=== PATIENT | female | born 1975 | race Caucasian/White ===

== ENCOUNTER 2019-02-05 21:23 | Emergency (ER) | payer BC, SELFPAY ==
[2019-02-05 21:23] VITALS: BP 148/77; PULSE 68; RESP 16; TEMP 36.6; O2SAT 100; BMI 23.3
--- NOTE | 2019-02-05 22:18 | ED.VIS.FEGU ---
History of Present Illness Chief Complaint: Vag Bleeding Informant: Patient Pain: Pelvic Pain Onset: Weeks - 1 Timing: Intermittent Quality: Cramping Current Severity: Mild Maximum Severity: Mild Issue: Vaginal bleeding Onset: Days - 8 Context: Gradual Onset Timing: Continuous Current Severity: Heavy - about 4-5 supers tampons over this past day Maximum Severity: Heavy Associated Symptoms: - - malaise. Negative for: Dysuria, Frequency, Urgency, Hematuria Narrative: Patient had menstrual cycle start as expected a days ago, they usually last 5 or 6 days. She is now on day 8 and over the past day or 2, her cycle/bleeding has been excessively heavy and unusual for her. She has had large clots as a result. She feels malaised but she has had no lightheadedness, near-syncope, shortness of breath, or palpitations. She states she has not had this happen before. She is having cramping which she typically has, as well as bloating which is unusual for her. She denies any nausea or vomiting. - Past Medical History (1) Depression Status: Chronic (2) Anxiety Status: Chronic Past Medical History - Allergies and Home Meds Allergies/Adverse Reactions: Allergies No Known Allergies Allergy (Verified 02/05/19 21:25) Primary Care Physician: Care Physician,No Primary [Primary Care Provider] - Doctors: Dr. Judge Smoking Status: Former smoker Drugs: None Review of Systems General: Reports: Malaise. Denies: Chills, Fever, Sweats Eyes: Denies: Visual changes - bilaterally, Diplopia ENT: Denies: Rhinorrhea, Sore throat Cardiovascular: Denies: Chest pain, Palpitations Respiratory: Denies: Dyspnea, Cough, Dyspnea on exertion Gastrointestinal: Reports: Abdominal pain. Denies: Nausea, Vomiting, Diarrhea, Melena, Hematochezia Genitourinary: Reports: - - Vaginal bleeding. See HPI.. Denies: Dysuria, Hematuria, Frequency Musculoskeletal: Denies: Back pain, Extremity Pain Skin: Denies: Rash, Wounds Neurological: Denies: Headache, Weakness, Numbness Physical Exam Vital Signs/Narrative: Vital Signs Temp Pulse Resp BP Pulse Ox 02/05/19 21:23 97.9 F 68 16 148/77 H 100 Inital Vital Signs reviewed: Yes General: Well nourished, Well developed, - - No acute distress Head: Normocephalic, Atraumatic Eyes: Perrl, EOMI ENT: Moist mucous membranes, No rhinorrhea Neck: Supple, Nontender Cardiovascular: Regular rate, Regular rhythm, No murmurs Respiratory: No distress, CTA bilaterally, Chest nontender Abdomen: Soft, Normal bowel sounds, Tender - Mild throughout pelvis. Negative for: Nondistended - Mild diffuse distention, Guarding, Rebound tenderness : Speculum exam: Normal external genitalia, No vaginal lesions, No vaginal discharge, No blood in vault, Small clots - Within cervical os, which was removed. No significant vaginal bleeding afterwards. Bimanual exam: No cervical motion tenderness, Os closed Back: Nontender, Normal Inspection. Negative for: CVA tenderness Extremities: Nontender, No edema Skin: Normal color, No rash, No Trauma Neurological: Alert, Oriented x3, Cranial nerves II-XII grossly intact, Normal Strength, Normal Sensation Psychological: Normal affect, Normal Mood Diagnostic/Tx/Re-eval Laboratory Results 02/05/19 02/05/19 02/05/19 22:40 22:40 22:40 WBC 7.8 RBC 3.64 L Hgb 7.2 L Hct 25.5 L MCV 70.1 L MCH 19.8 L MCHC 28.2 L RDW Std Deviation 46.6 H RDW Coeff of Matias 18.7 H Plt Count 432 MPV 9.3 Immature Gran % (Auto) 0.300 Neut % (Auto) 54.6 Lymph % (Auto) 33.4 Pima % (Auto) 6.8 Eos % (Auto) 3.6 Baso % (Auto) 1.3 H Absolute Neuts (auto) 4.3 Absolute Lymphs (auto) 2.60 Nucleated RBC % 0 Sodium 141 Potassium 3.4 L Chloride 108 H Carbon Dioxide 27.0 Anion Gap 6 BUN 21 H Creatinine 0.93 Estim Creat Clear Calc 68.74 Est GFR (MDRD) Af Amer 85 Est GFR (MDRD) Non-Af 70 BUN/Creatinine Ratio 22.6 H Glucose 82 Calcium 8.7 Serum , Qual NEGATIVE - Medical Decision/Diagnostic Studies Labs show a hemoglobin of 7.2, certainly explaining why the patient does not feel well with all of the menorrhagia she has been having. On pelvic exam, she does not have any clinically significant vaginal bleeding. Her orthostatics were mildly positive with regards to heart rate, she did not feel near syncopal when she stood up. I discussed with Dr. Cazares, covering for her moshgiach; he feels given her stability she can be discharged home and follow-up in 2 days in the office. He recommends Aygestin, 10 mg every 2 hours until bleeding stops, and then a 4-5-day taper which they can take care of in the office, recommended giving her 42 pills. I discussed this with the patient and she is amenable to that, but I recommend getting a unit of packed red blood cells prior to discharge in case she continues to bleed. We discussed risks and benefits, she agrees/consents to the transfusion. The plan is to give her a unit here along with 500 cc of IV fluids given her orthostasis, and to discharge her home later. Of note, ultrasound not available during the hours the patient presented, and although may be helpful, not indicated emergently. I am not suspicious of ovarian torsion. She has noted no severe pain. Critical care time (excluding procedures): 30-74 minutes - 35 minutes, including time spent discussing with patient, family, product management consultant, performing direct patient care at the bedside ED Disposition - Plan for ED Patient: Disposition: Home or Assisted Living Diagnosis: Acute blood loss anemia, Menorrhagia Instructions: Dysfunctional Uterine Bleeding Referrals: Gifty Judge MD [STAFF PHYSICIAN] - As soon as possible (Call Thursday morning for appointment on Thursday, Thursday at latest)
[2019-02-05] MEDS: Ketorolac 30 MG/ML Syringe IV (22:36)
[2019-02-05 22:41] VITALS: BP 113/74; BP 125/82; BP 128/76; PULSE 55; PULSE 74; PULSE 78
[2019-02-05 22:46] LABS: Absolute Neutrophil Count 4.3 X10^3/uL (2.0-7.7); Basophil% 1.3 % (0-1); Eosinophil# 0.28 X10^3/uL; Eosinophils% 3.6 % (0-5); Hematocrit 25.5 % (37-47); Hemoglobin 7.2 g/dL (12.0-15.0); Lymphocyte % 33.4 % (19-41); Mean Corp Hgb Conc 28.2 g/dL (32-36); Mean Corpuscular Hgb 19.8 pg (27.0-32.0); Mean Corpuscular Volume 70.1 fL (81-99); Mean Platelet Vol. 9.3 fl (6.2-12.0); Monocyte# 0.53 X10^3/uL; Monocyte% 6.8 % (0-10); NRBC Flagged by Analyzer 0 % (0-5); Neutrophil # 4.26 X10^3/uL (2.7-7.7); Neutrophil % 54.6 % (47-70); Platelet Count 432 K/mm3 (150-450); RBC Distribution Width CV 18.7 % (11.6-14.6); RBC Distribution Width SD 46.6 fl (35.1-43.9); Red Blood Count 3.64 M/mm3 (4.2-5.4); White Blood Count 7.8 K/mm3 (4.4-11.0)
[2019-02-05 22:47] VITALS: BP 125/82; PULSE 77; RESP 16; O2SAT 97
[2019-02-05 23:00] LABS: Anion Gap 6 (5-15); BUN 21 mg/dL (7-18); BUN/Creat Ratio 22.6 RATIO (10-20); Calcium,Total 8.7 mg/dL (8.5-10.1); Chloride 108 mmol/L (98-107); Creatinine, Serum 0.93 mg/dL (0.55-1.02); EST Glomerular Filtration Rate 70 mL/min (>60); Est Glom Filt Rate - Afr Amer 85 mL/min (>60); Estimated Creatinine Clearance 68.74 ml/min; Glucose 82 mg/dL (74-106); Potassium 3.4 mmol/L (3.5-5.1); Sodium Level 141 mmol/L (136-145)
[2019-02-05 23:07] LABS: Internal QC Validated? YES +Cl - CLEAR BKGD; Pregnancy, Serum, hCG Quali. NEGATIVE Negative
[2019-02-06] VITALS (7 sets, daily range): BP systolic 107–127; BP diastolic 75–88; PULSE 51–75; RESP 14–16; TEMP -13.3–36.9; O2SAT 99–100
--- NOTE | 2019-02-06 04:05 | ED.RN ---
temp put in the TAR in error, unable to edit, temp 98.1
== END 2019-02-06 04:07 | disposition home or self-care (01) ==
PROVIDERS: Emergency Provider Emergency Medicine
DX: D62 Acute posthemorrhagic anemia (principal); N92.0 Excessive and frequent menstruation with regular cycle; F32.9 Major depressive disorder, single episode, unspecified; F41.9 Anxiety disorder, unspecified; Z79.899 Other long term (current) drug therapy; Z87.891 Personal history of nicotine dependence
CPT/HCPCS: 80048; 84703; 85025; 86850; 86900; 86901; 86920; 86922; 96361; 96374; 99282; J7030; J7040; P9016; A4216

== ENCOUNTER 2019-07-28 05:54 | Day surgery (SDC) | payer BC, SELFPAY ==
--- NOTE | 2019-07-27 13:31 | EKG12_ITS ---
Test Reason : PRE OP Blood Pressure : / mmHG Vent. Rate : 061 BPM Atrial Rate : 061 BPM P-R Int : 156 ms QRS Dur : 076 ms QT Int : 400 ms P-R-T Axes : 021 037 026 degrees QTc Int : 402 ms Normal sinus rhythm Cannot rule out Anterior infarct , age undetermined Abnormal ECG Confirmed by NORBERTO MEDRANO ([id number]), editor newspaper LELE CAMPBELL ([id number]) on 07/29/2019 1:15:46 PM Referred By: Joel Cazares Confirmed By:NORBERTO MEDRANO
[2019-07-27 14:10] LABS: Hemoglobin 12.6 g/dL (12.0-15.0); Mean Corp Hgb Conc 32.3 g/dL (32-36); Mean Corpuscular Hgb 30.5 pg (27.0-32.0); Mean Corpuscular Volume 94.4 fL (81-99); Mean Platelet Vol. 9.6 fl (6.2-12.0); Platelet Count 377 K/mm3 (150-450); Red Blood Count 4.13 M/mm3 (4.2-5.4)
[2019-07-27 14:26] LABS: Partial Thromboplast Time 31.4 Seconds (24.1-36.2); Prothrombin Time (Protime)PT. 13.1 SECONDS (11.7-14.9)
[2019-07-27 14:35] LABS: Anion Gap 3 (5-15); BUN 13 mg/dL (7-18); BUN/Creat Ratio 14.9 RATIO (10-20); Chloride 109 mmol/L (98-107); Creatinine, Serum 0.88 mg/dL (0.55-1.02); EST Glomerular Filtration Rate 75 mL/min (>60); Est Glom Filt Rate - Afr Amer 91 mL/min (>60); Glucose 86 mg/dL (74-106); Potassium 3.7 mmol/L (3.5-5.1); Sodium Level 141 mmol/L (136-145)
--- NOTE | 2019-07-27 21:49 | PCM.HP.BLA ---
History and Physical Date of Admission: 07/28/19 Surgical History and Physical Christina Templeton, a 44 year old female 2 0 1 0 2, presents for RAVH/BS on July 28, 2019 at 7:30. -- Submucous Fibroids, Menorrhagia, Blood Loss Anemia -- Increasingly heavier menses with last menses so heavy she passed out at work. States heavy and prolonged period. Concerned about how heavy the bleeding has been. Prior tubal ligation, prior C/S deliveries. Even presented to ED with CC of very heavy period. Received 2 unit of pRBCs and sent home with Aygestin Taper. U/S:UTERUS: 8.9 x 5.8 x 6.6cm. posterior submucous fibroid seen measures 3.5 x 3.7 x 3.5cm. ENDOMETRIAL ECHO: 6.1mm. RIGHT OVARY: 2.3 x 1.9 x 2.3cm. LEFT OVARY: 1.5 x 1.9 x 2.3cm. Fibroid has grown from the last us done on 01/28/17. Fibroid measured 2.4cm. Hgb was 7.2 and she was transfused. Heavy bleeding with clots causing extreme fatigue. Heavy Bleeding with Clots(ER on 07/11) which began started 07/01/19. Christina claims it started suddenly and has been present continues through today. It occurs all the time. It is located in the vagina. Christina characterizes the quality Heavy bleeding, Clots, Fatigue. Severity is moderate and not improving and very concerned; Additional comments are: Seen at [facility] on 07/11/19.; Additional comments are: hgb about 10; has been as low as 7 and has been transfused with 2 units PRBC several months ago. MEDICATIONS HISTORY: Patient is also takin. Adderall 30 mg tablet, daily 2. Klonopin 0.5 mg tablet, prn 3. Wellbutrin XL 300 mg 24 hr tablet, extended release, daily 4. Ambien 5 mg tablet, One pill by mouth once a day at hs prn ALLERGIES: NKA Infections - Chicken pox and [place] Illnesses - depression/anxiety, back pain, post-traumatic stress disorder Accidents - Lifting accident age 24 which resulted in herniated disc L-4 Hospitalizations - see surgery and Childbirth Review of Systems: GENERAL - Denies fever, or chills SKIN - Denies skin changes EYES - Denies visual changes EARS - Denies difficulty hearing NOSE - Denies nasal congestion or bleeding MOUTH - Denies sore throat or difficulty swallowing NECK - Denies pain or swelling RESPIRATORY - Denies shortness of breath or wheezing CARDIOVASCULAR - Denies palpitations or chest pain GASTROINTESTINAL - Denies nausea, vomiting, diarrhea, constipation GENITOURINARY - Denies dysuria, frequency of urination, incontinence of urine MUSCULOSKELETAL - Denies joint or muscle pain NEUROLOGICAL - Denies localized numbness or weakness PSYCHIATRIC - Denies depression or anxiety ENDOCRINE - Denies heat or cold intolerance, weight loss or gain HEMATO-IMMUNOLOGIC - Denies excesive bleeding with cuts SOCIAL HISTORY: Alcohol Use - socially Smoking - used to smoke but quit Diet - no red meat Lifestyle - Exercise - swimming and walking Seat Belt Use - always Employer - [employer] [address] 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 and high cholesterol. Mother: Mitral Valve Prolapse. Father: Pre-diabetes--- diet controlled. Sister: celiac disease. Paternal Grandmother: angina, glaucoma, parkinson's dx. MENSTRUAL HISTORY: LMP Known?- DefiniteAmount/Duration - prolonged, Regularity - bleeds between periods, Frequency - monthly days, LMP - 07/02/19, Age Onset Menarche - 13 PAST PREGNANCIES: Total Pregnancies - 3; Full Term Pregnancies - 2; Premature - 0; Abortions, Induced - 0; Abortions, Spontaneous - 1; Ectopics - 0; Multiple Births - 0; Living Children - 2 SURGICAL HISTORY: 1. Appendectomy 2. 04/17/2009 Back Surgery ; - Herniated Disc L-4 3. 01/17/2010 R/, BTO ; Gifty Judge M.D. - Prior 4. 09/24/2005 ; Mayra Cornejo M.D. - Breech PHYSICAL EXAM BP- 136/86 Sitting, Right arm, regular cuff Weight- 137.04496 lbs Height- 64.5 inch BMI:23.20 CONSTITUTIONAL - NAD, well nourished, and well developed HEENT - Normocephalic, PERRLA, EOMI NECK - no nuchal rigidity BREAST - deferred EXTREMITIES - No edema or calf tenderness NEUROLOGICAL - Cranial nerves II-XII grossly intact PSYCHIATRIC - A and O to time, place, person, mood and affect External Genital Vagina - non-tender without lesions Urethra/Urethral Meatus - non-tender Bladder - non-tender Vagina - no palpable lesions Cervix - without cervical motion tenderness and has normal size and features without evident lesions Uterus - normal size, mobile, no tenderness, no masses palpable and no nodularity noted Adnexa - clear without masses or tenderness ASSESSMENT/PLAN: 1. Excessive Bleeding In The Premenopausal Period, Iron Deficiency Anemia Secondary To Blood Loss (chronic), Menorrhagia and Submucous Leiomyoma Of Uterus Reviewed pelvic ultrasound and pt's recent history , emergency dept visit and transfusion for blood loss anemia. Submucous fibroid noted and continued growth since prior sono. Advised may consider hysterectomy, and pt now desires that we proceed RAVH/BS. Discussed RBAS and all questions answered.
[2019-07-28] VITALS (14 sets, daily range): BP systolic 84–119; BP diastolic 57–77; PULSE 60–90; RESP 16–18; TEMP 36.4–37.3; O2SAT 98–100; BMI 24.0
[2019-07-28] MEDS: Lactated Ringers 1,000 ML 100 ML IV ×2 (06:40→06:46)
[2019-07-28 07:05] LABS: Internal QC Validated? YES +Cl - CLEAR BKGD; Pregnancy, Urine Negative Negative
--- NOTE | 2019-07-28 07:30 | HYST_PTH ---
PATIENT: WILY JEWELL LOC: [facility] U#:[id number] AGE/SX: 44/F ROOM: RE07/28/[address]: Dr. Joel Cazares MD : [id number] BED: DIS: 07/29/2019 SPEC #: [id number] RECD: 07/28/19 13:24 STATUS: ANITRA REDelano #: [id number] JEANNIE: 07/28/19 07:[address]: Joel Cazares DEPT: SURGICAL PATHOLOGY RECD BY: Edgar Kowalski ENTERED: 07/28/19 13:57 SP TYPE: HYSTERECT OTHR DR: No Primary Care Phys Tissues: Uterus, NOS Procedures: Surgery Specimen Level V HEADER OPERATION: Lap robotic hysterectomy, bilateral salpingectomy PRE-OP DIAGNOSIS: Excessive bleeding the premenopausal period; iron deficiency anemia; menorrhagia and submucous leiomyoma of uterus TISSUE SUBMITTED: Uterus, bilateral fallopian tubes MICROSCOPIC DIAGNOSIS Uterus, hysterectomy: Cervix - nabothian cysts, squamous metaplasia and mild chronic inflammation. Endometrium - secretory endometrium. Myometrium - leiomyomas and adenomyosis. Right fallopian tube - benign paratubal cyst. Left fallopian tube - benign paratubal cyst. AM:collins 07/29/19 MICROSCOPIC DESCRIPTION Slides are reviewed. GROSS DESCRIPTION Received in fixative is one container labeled with the patient's name and designated uterus. The specimen consists of a uterus with attached cervix, detached right fallopian tube and attached left fallopian tube. The uterus with cervix measures 10.5 x 7 x 7 cm and weighs 215 gm. The ectocervix is unremarkable. The cervical os is round in contour. The endocervical canal measures 4 cm in length and is grossly unremarkable. The triangular endometrial cavity measures 4.6 x 4 cm. The velvety, light boggs endometrium measures up to 0.2 cm in thickness. The myometrium measures 2.8 cm in greatest thickness and is distorted by multiple spherical rubbery nodules ranging in size from 1 to 5 cm. The nodules are submucosal and intramural in location. On cut sections, the nodules reveal a whorled appearance without areas of cyst formation or necrosis. The right and left fallopian tubes are similar in appearance. Distinct fimbriated end is not identified in the left fallopian tube. A Filshie type clip is present in the left fallopian tube and is intact. Lumber Estimator sections are submitted in ten cassettes as follows: 1 - anterior cervix, 2 - posterior cervix, 3 & 4 - anterior uterine wall, 5 & 6 - posterior uterine wall, 7??largest myometrial mass, 8 - smaller myometrial masses, 9 - right fallopian tube, 10 - left fallopian tube. / AM:collins 07/28/19 TC:1 CPT: 00110
--- NOTE | 2019-07-28 07:38 | PCM.OPRPT ---
Report of Operation Date of Procedure: 07/28/19 Pre-Operative Diagnosis: Submucous Fibroids, Menorrhagia, Blood Loss Anemia Post-Operative Diagnosis: Submucous Fibroids, Menorrhagia, Blood Loss Anemia Surgery/Procedure Performed:: Robotic Assisted Vaginal Hysterectomy and Bilateral Salpingectomy Description of Surgical Findings:: 14 cm fibroid uterus with normal-appearing fallopian tubes and ovaries. Evidence of prior sections with adhesions of the uterus to the anterior abdominal wall and bladder. Evidence of prior tubal ligation with Filshie clips. vehicle return associate: Mata Montilla vehicle return associate: Nia Solo Type of Anesthesia:: General - Endotracheal Anesthesiologist: Marcella Sparks Specimen's removed: Uterus and bilateral fallopian tubes Drains: Sy to straight drain Estimated Blood Loss (mL): Minimal Fluids Replaced: Crystalloid Description of Procedure: Surgeon: Joel Cazares MD, FACOG Indication: This is a 44 year old patient who has been having problems with extremely heavy menses and submucous fibroids. Conservative measures have not been helpful. The patient has been counseled regarding the risks, benefits and alternatives of this procedure including the possibility of bleeding, infection, and injury to surrounding structures such as bowel bladder and all questions were answered. She understands that if BSO is needed that she will need to be on HRT for an indefinite period of time. Procedure: Pt taken to the operating room where, after induction of general anesthesia, the patient was prepped and draped in the usual sterile fashion and placed on a non-slip Huggy-u-vac device. Trendelenburg test was satisfactory. Bladder was drained of urine with a Sy catheter which was left in place. Anterior cervix grasped and cervix was dilated to about 3-4 mm. Uterus sounded to 11 cms. 0-Vicryl suture was placed at the 3:00 and 9:00 position of the cervix. A small Advincula Employee Welfare Manager Uterine Manipulator was then placed in the uterus and attention was turned to the laparoscopic portion of the procedure. Ropivocaine 0.5% was injected approximately 3 cm superior to the umbilicus and an 8 mm robotic camera port was introduced directly with intraperitoneal placement confirmed with CO2 insufflation. 8 mm robotic side ports were introduced under direct visualization approximately 10 cm lateral and 2 cm inferior to the umbilical port. A 5 mm left upper quadrant port was introduced and airseal insufflation with CO2 was started. The above findings were noted. Robot was docked without difficulty and attention turned to the robotic portion of the procedure. Approximately 30 cc of Ropivicaine was used. Bilateral mesosalpinx were ligated with 35 miranda bipolar coagulation to the level of the round ligament. The posterior aspect of the cervix was identified and then opened for about 1 cm using 25 watt monopolar cautery identifying the uterine manipulating device which had been placed vaginally. Bladder flap was opened and divided to the level of the round ligaments using monopolar cautery ligating the adhesions with sharp, blunt, and cautery dissection. Progressive bites were then ligated on each side of the cervix with 35 miranda bipolar cautery to the uterine arteries. The anterior vaginal mucosa was entered and cervix circumscribed with monopolar cautery. Uterus and attached tubes were removed through the vagina. Vaginal cuff was closed first with 0-Vicryl Greg stitches placed at each angle followed by closure of the mid-cuff with 0-Monocryl V-lock suture in two layers. Pelvis was copiously irrigated with saline and the right and left ureter were noted to peristalse. Robot was undocked and trocars were removed with as much gas as possible. Incisions were closed with 4-0 Monocryl subcuticular sutures and incisions covered with steri-strips. The patient tolerated the procedure well and was taken to the recovery room in satisfactory condition. Sponge, instruments and needle counts were all correct. There were no apparent complications of the surgery. Cefotan 2 gms IV was given prior to the procedure. Estimated Blood Loss: Minimal Specimen to Pathology: Uterus and bilateral tubes Grafts/Implants Used: None - Complications None - Admit VTE Documentation VTE Present on Admission: Yes VTE Mechan Device Prophylaxis: SCD's VTE Pharm Prophylaxis ordered?: Yes
--- NOTE | 2019-07-28 07:40 | PCM.DC.VHY ---
Discharge Diet: No Restrictions Discharge Activity: Return to Normal Activity, May Not Drive - while taking narcotic pain medications., May Shower, May Take a Tub Bath May resume sexual activity in: 6-8 weeks Call your doctor if your incision/area has: Continuous Slow Oozing, Sudden Increased Bleeding, Increased Pain/ Swelling, Increased Redness, Foul Smelling Discharge Call your doctor if you observe: Fever of 101 or Higher, Inability to urinate, Inability to have a bowel movement, Using more than one pad per hour Allergies/Adverse Reactions: Allergies No Known Allergies Allergy (Verified 07/28/19 06:17) Medications to take at Discharge Bupropion HCl [Wellbutrin Xl] 300 mg PO DAILY 02/05/19 Clonazepam 0.5 mg PO DAILY PRN 02/05/19 Dextroamphetamine/Amphetamine [Dextroamp-Amphet ER 30 mg Cap] 50 mg PO DAILY 02/05/19 Multivitamin with Minerals [Multiple Vitamin] 1 ea PO DAILY 07/21/19 Docusate Sodium [Colace] 100 mg PO BID PRN PRN #60 cap 07/28/19 Oxycodone [Oxyir] 5 mg PO Q6H PRN PRN 7 Days #14 tablet 07/28/19 The following prescriptions were given: Docusate Sodium [Colace] 100 mg PO BID PRN PRN #60 cap PRN Reason: Constipation Transmission Status: Pending to [facility] Oxycodone [Oxyir] 5 mg PO Q6H PRN PRN 7 Days #14 tablet PRN Reason: Pain Score 6-10/10 Transmission Status: Sent to [facility] Primary Care Physician: Care Physician,No Primary [Primary Care Provider] - Test Results: Test results from this visit will be discussed in further detail at your follow-up appointment, if applicable. Please Follow Up With: Joel Cazares MD When: 2 to 3 weeks
[2019-07-28] MEDS: Ropivacaine 0.5% 30 ML Vial (10:00)
[2019-07-28] MEDS: Dextrose 5%-Lactated Ringers 1,000 ML 150 ML IV ×2 (13:25→21:01)
[2019-07-28] MEDS: HYDROmorphone 1 MG/ML Syringe 0.5 MG IV (13:29)
[2019-07-28] MEDS: Ketorolac 30 MG/ML Syringe IV ×2 (16:22→21:02)
[2019-07-28] MEDS: Ondansetron 4 MG/2 ML Vial IV (16:22)
[2019-07-28] MEDS: Enoxaparin 30 MG/0.3 ML Syringe SC (17:27)
[2019-07-29 03:15] VITALS: BP 103/62; PULSE 90; RESP 18; TEMP 37.1; O2SAT 99
[2019-07-29] MEDS: Ketorolac 30 MG/ML Syringe IV ×2 (03:17→09:14)
[2019-07-29 05:45] LABS: Hematocrit 29.6 % (37-47); Hemoglobin 9.5 g/dL (12.0-15.0); Mean Corp Hgb Conc 32.1 g/dL (32-36); Mean Corpuscular Hgb 30.2 pg (27.0-32.0); Mean Platelet Vol. 9.8 fl (6.2-12.0); Platelet Count 255 K/mm3 (150-450); RBC Distribution Width CV 13.2 % (11.6-14.6); RBC Distribution Width SD 45.2 fl (35.1-43.9); Red Blood Count 3.15 M/mm3 (4.2-5.4); White Blood Count 11.1 K/mm3 (4.4-11.0)
[2019-07-29 06:14] LABS: Creatinine, Serum 0.76 mg/dL (0.55-1.02); EST Glomerular Filtration Rate 89 mL/min (>60); Est Glom Filt Rate - Afr Amer 107 mL/min (>60); Estimated Creatinine Clearance 83.27 ml/min
[2019-07-29 07:47] VITALS: BP 114/78; PULSE 77; RESP 16; TEMP 36.8; O2SAT 99
[2019-07-29 07:53] VITALS: O2SAT 98
[2019-07-29] MEDS: oxyCODONE 5 MG Tablet PO (08:51)
[2019-07-29] MEDS: buPROPion (XL) 300 MG TABLET.XL PO (08:51)
--- NOTE | 2019-07-29 09:05 | PCM.PN.OB ---
Objective: Patient without complaints. Tolerating diet. Some spasms into the vagina likely from the Sy catheter. Minimal vaginal bleeding. - Physical Exam Vitals/I&O's: Vital Signs Temp Pulse Resp BP Pulse Ox 98.3 F 77 16 114/78 98 07/29/19 07:47 07/29/19 07:47 07/29/19 07:47 07/29/19 07:47 07/29/19 07:53 Oxygen Delivery Method Room Air Weight: 139 lb 15.896 oz Body Mass Index (BMI) 24.0 Intake and Output for Last 24 Hours 07/27/19 07/28/19 07/29/19 23:59 23:59 23:59 Intake Total 2475 / 2475 1000 / 1000 Output Total 600 / 600 900 / 900 Balance 1875 / 1875 100 / 100 Comment: Wounds CDI. Good urine output. Hemoglobin and creatinine okay. Laboratory Results 07/29/19 05:14: WBC 11.1 H, RBC 3.15 L, Hgb 9.5 L, Hct 29.6 L, MCV 94.0, MCH 30.2, MCHC 32.1, RDW Std Deviation 45.2 H, RDW Coeff of Matias 13.2, Plt Count 255, MPV 9.8 07/29/19 05:14: Creatinine 0.76, Estim Creat Clear Calc 83.27, Est GFR (MDRD) Af Amer 107, Est GFR (MDRD) Non-Af 89 Current Medications Acetaminophen (Tylenol) 1,000 mg PO Q8H PRN PRN PRN Reason: Pain Score 1-3/10 or Fever Bupropion HCl (Wellbutrin Xl) 300 mg PO DAILY [facility] Last Admin: 07/29/19 08:51 Dose: 300 mg Documented by: Clonazepam (Klonopin) 0.5 mg PO DAILY PRN PRN PRN Reason: ANXIETY Docusate Sodium (Colace) 100 mg PO BID PRN PRN PRN Reason: CONSTIPATION Hydromorphone HCl (Dilaudid Inj) 0.5 mg IV Q3H PRN PRN PRN Reason: Pain Score 4-10/10 Last Admin: 07/28/19 13:29 Dose: 0.5 mg Documented by: Ketorolac Tromethamine (Toradol (Bkc)) 30 mg IV Q6H [facility] Stop: 08/02/19 16:01 Last Admin: 07/29/19 03:17 Dose: 30 mg Documented by: Non-Formulary Medication (Dextroamphetamine/Amphetamine [Dextroamp-Amphet Er 30 Mg Cap]) 50 mg PO DAILY [facility] Ondansetron HCl (Zofran) 4 mg IV Q4H PRN PRN PRN Reason: NAUSEA Last Admin: 07/28/19 16:22 Dose: 4 mg Documented by: Oxycodone HCl (Oxyir) 5 mg PO Q4H PRN PRN PRN Reason: Pain Score 4-10/10 Last Admin: 07/29/19 08:51 Dose: 5 mg Documented by: Simethicone (Mylicon) 80 mg PO [facility] Last Admin: 07/29/19 08:00 Dose: 80 mg Documented by: Sodium Chloride () 10 - 40 ml IV UD PRN PRN Reason: SALINE FLUSH Medical Necessity - Tobacco Use Smoking Status: Former smoker Tobacco Use: Non-smoker Assessment/Plan Doing well postoperative day #1 status post robotic assisted vaginal hysterectomy and bilateral salpingectomy. Will release to home later today when tolerating diet well and after Sy is out and she is voiding on her own. Routine home-going instructions given.
[2019-07-29] MEDS: 0.9% Saline Lock 10 ML Syringe IV (09:14)
[2019-07-29 11:14] VITALS: BP 106/63; PULSE 75; RESP 16; TEMP 37.1; O2SAT 97
== END 2019-07-29 11:25 | disposition home or self-care (01) ==
LOC: SDC 05:54 → AC 05:55 → MS3 14:08
PROVIDERS: Referring Provider Obstetrics & Gynecology; Visit Provider Obstetrics & Gynecology
PROC: 0UT90ZZ Resection of Uterus, Open Approach (ICD-10-PCS; CPT 58571; principal; 2019-07-28 07:10)
DX: D25.0 Submucous leiomyoma of uterus (principal); N87.9 Dysplasia of cervix uteri, unspecified; N88.8 Other specified noninflammatory disorders of cervix uteri; N83.8 Other noninflammatory disorders of ovary, fallopian tube and broad ligament; D50.0 Iron deficiency anemia secondary to blood loss (chronic); N92.0 Excessive and frequent menstruation with regular cycle; F41.9 Anxiety disorder, unspecified; F32.9 Major depressive disorder, single episode, unspecified; F43.10 Post-traumatic stress disorder, unspecified; Z79.899 Other long term (current) drug therapy; Z87.891 Personal history of nicotine dependence
CPT/HCPCS: 00840; 58571; S2900; 36415; 80048; 81025; 82565; 85027; 85610; 85730; 86850; 86900; 86901; 88307; 93005; 99251; J7120; A4216; G0463; J2405

== ENCOUNTER 2019-08-09 09:24 | Emergency (ER) | payer BC, SELFPAY ==
[2019-07-28 12:25] VITALS: BMI 24.0
[2019-08-09 09:27] VITALS: BP 123/77; PULSE 87; RESP 16; TEMP 36.7; O2SAT 100; BMI 23.1
[2019-08-09 10:03] LABS: Absolute Lymphocyte Count 1.57 X10^3/uL (0.83-4.51); Absolute Neutrophil Count 8.2 X10^3/uL (2.0-7.7); Basophil# 0.12 X10^3/uL; Basophil% 1.1 % (0-1); Eosinophil# 0.39 X10^3/uL; Eosinophils% 3.6 % (0-5); Hematocrit 36.4 % (37-47); Hemoglobin 11.7 g/dL (12.0-15.0); Lymphocyte # 1.57 X10^3/ul (4.0); Lymphocyte % 14.6 % (19-41); Mean Corp Hgb Conc 32.1 g/dL (32-36); Mean Corpuscular Hgb 29.9 pg (27.0-32.0); Mean Corpuscular Volume 93.1 fL (81-99); Mean Platelet Vol. 9.3 fl (6.2-12.0); Monocyte# 0.44 X10^3/uL; Monocyte% 4.1 % (0-10); NRBC Flagged by Analyzer 0 % (0-5); Neutrophil # 8.18 X10^3/uL (2.7-7.7); Neutrophil % 76.1 % (47-70); Platelet Count 457 K/mm3 (150-450); RBC Distribution Width CV 11.9 % (11.6-14.6); RBC Distribution Width SD 40.3 fl (35.1-43.9); Red Blood Count 3.91 M/mm3 (4.2-5.4); White Blood Count 10.8 K/mm3 (4.4-11.0)
--- NOTE | 2019-08-09 10:09 | ED.VISSUMM ---
- ER Visit Summary Date of Service: 08/09/19 Chief Complaint: [Vaginal bleeding] History of Present Illness: The patient is a 44 F [presents to the emergency department with vaginal bleeding that started this morning. Patient states that she had robotic assisted hysterectomy performed [address] Cazares. Leading up to today she just had some intermittent small amounts of brownish discharge. She denies any vaginal trauma or recent intercourse. Patient states that she just stood up and had gush of blood. He describes some lower abdominal cramping. Patient denies urinary symptoms. She denies rectal bleeding.] Physical Examination: [HEENT-PERRLA, EOMI. Cranial nerves II through XII grossly intact. TMs clear. Mucous membranes moist. No adenopathy. Cardiovascular-regular rate and rhythm without murmur or ectopy Lungs-clear to auscultation, chest wall stable without crepitus or subcu emphysema Abdomen-normoactive bowel sounds, soft, nontender, no rebound or rigidity, no peritoneal signs. exam-patient had a large clot in the vaginal vault. No obvious tears seen. Having a difficult time evaluating the vaginal cuff however. After the clot was cleaned out and blood cleaned out there is no active bleeding. Extremities-intact ?4, normal range of motion, normal pulses, atraumatic] Test Results: [CBC with differential obtained showed a white count of 10.8, hemoglobin 11.7, hematocrit 36, platelets 157. Chemistries unremarkable. Orthostatics were negative.] Emergency Department Course and Treatment: [Patient case was discussed with MACHINE DESIGN CHECKER on-call Dr. Trini Og who presented to the emergency department and also evaluated patient. This point she is not having any further bleeding and I was asked to discharge patient home.] Treatment Plan: [Discharged home with instructions to follow-up with MACHINE DESIGN CHECKER next week. Patient advised to return if persistent heavy bleeding, passing clots, lightheadedness, or conditions worsen anyway.] Disposition: [Discharged home in stable condition] Impression: [Vaginal bleeding-postop hysterectomy] This note was generated with [employer] software. It may contain incorrect words, spelling, and punctuation that were not noted in review of the chart prior to signing ED Disposition - Plan for ED Patient: Referrals: Care Physician,No Primary [NON-STAFF] -
[2019-08-09 10:16] LABS: Anion Gap 4 (5-15); BUN 14 mg/dL (7-18); BUN/Creat Ratio 17.3 RATIO (10-20); Calcium,Total 8.7 mg/dL (8.5-10.1); Chloride 107 mmol/L (98-107); Creatinine, Serum 0.81 mg/dL (0.55-1.02); EST Glomerular Filtration Rate 83 mL/min (>60); Est Glom Filt Rate - Afr Amer 100 mL/min (>60); Estimated Creatinine Clearance 78.13 ml/min; Glucose 88 mg/dL (74-106); Sodium Level 140 mmol/L (136-145)
[2019-08-09 10:50] VITALS: BP 126/84; BP 134/92; BP 136/91; PULSE 74; PULSE 75; PULSE 76
[2019-08-09] MEDS: 0.9% Normal Saline 1,000 ML 150 ML IV (10:51)
[2019-08-09 10:55] LABS: Bacteria 0 SEEN /hpf (None Seen); Mucous, Urine 0 SEEN /hpf (<or=2+); White Blood Cells 0 SEEN /hpf (0-5)
[2019-08-09 10:56] LABS: Color, Urine Yellow (Yellow); Glucose, Dipstick Normal (Normal); Ketone-Dipstick Negative (Negative); Leukocyte Esterase-Dipstick Negative /ul (Negative); Nitrite-Dipstick Negative (Negative); Occult Blood-Urine 150 /ul (Negative); Protein-Dipstick Negative (Negative); Specific Gravity, Urine 1.005 (1.002-1.030); Urine Bilirubin Dipstick Negative (Negative); Urine Clarity Clear (Clear); Urine Urobilinogen Normal (Normal)
[2019-08-09 11:03] LABS: Red Blood Cells-Urine 0-5 SEEN /hpf (0-5); Squamous Epithelial Cells - UA 0-5 SEEN /hpf (5-10)
[2019-08-09 12:24] VITALS: BP 127/90; PULSE 70; RESP 11; O2SAT 100
--- NOTE | 2019-08-09 13:33 | ED.DEP ---
ED Disposition - Plan for ED Patient: Instructions: POST OP WOUND CHECK, Bleeding Referrals: Care Physician,No Primary [NON-STAFF] - Joel Cazares MD [STAFF PHYSICIAN] - 3-5 Days
[2019-08-09 13:40] VITALS: BP 129/69; PULSE 71; RESP 16; O2SAT 99
== END 2019-08-09 13:42 | disposition home or self-care (01) ==
PROVIDERS: Emergency Provider Emergency Medicine; PCP Family Medicine
DX: N93.9 Abnormal uterine and vaginal bleeding, unspecified (principal); R10.30 Lower abdominal pain, unspecified; Z90.710 Acquired absence of both cervix and uterus
CPT/HCPCS: 80048; 81001; 85025; 86850; 86900; 86901; 96360; 96361; 99284; J7030; A4216

== ENCOUNTER → 2019-12-20 | Outpatient (CLI) | payer BC, SELFPAY | END | disposition home or self-care (01) | LOC: LABSPEC 12-21 07:40 | PROVIDERS: PCP Family Medicine; Visit Provider Family Medicine Hospice and Palliative Medicine | DX: Z11.59 Encounter for screening for other viral diseases (principal) | CPT/HCPCS: 87635; G2023; U0003 ==

== ENCOUNTER 2024-09-15 11:08 | Observation (INO) | payer OTHER, SELFPAY ==
[2024-09-15] VITALS (12 sets, daily range): BP systolic 107–161; BP diastolic 73–98; PULSE 47–64; RESP 12–18; TEMP 36.2–37; O2SAT 96–100; BMI 22.6
--- NOTE | 2024-09-15 12:42 | EKG12_ITS ---
Test Reason : WEAKNESS Blood Pressure : */* mmHG Vent. Rate : 48 BPM Atrial Rate : 48 BPM P-R Int : 168 ms QRS Dur : 84 ms QT Int : 440 ms P-R-T Axes : 28 64 76 degrees QTcB Int : 393 ms Sinus bradycardia Nonspecific ST abnormality Abnormal ECG Confirmed by GERSON ROSA, BAYLEE ([id number]), metropolitan editor LAURA HUTTON ([id number]) on 09/16/2024 9:35:54 AM Referred By: Confirmed By: BAYLEE NIETO MD
--- NOTE | 2024-09-15 12:45 | CT_ITS ---
PROCEDURE: CTA HEAD AND NECK W/ CONTRAST 09/15/2024 REASON FOR EXAM: CONFUSION, ROMERO TECHNIQUE: CTA imaging of the head and neck from the aortic arch to the skull vertex with intravenous contrast. Coronal and Sagittal reconstruction series were provided. 3D, 3D post processing, 3D reconstructions, Maximum intensity projection (MIPs) Volume rendering and Shaded surface rendering was provided. CONTRAST: Isovue 370 VOLUME: 100 mL One or more dose reduction techniques were used (e.g., Automated exposure control, adjustment of the mA and/or kV according to patient size, use of iterative reconstruction technique). RADIATION DOSE SUMMARY: CTDlvol: 27 mGy DLP: 1466.14 mGycm COMPARISON: None FINDINGS: Unenhanced CT scan of the head is unremarkable. Aortic Arch: Normal size and branching pattern. No significant atherosclerotic plaque. Brachiocephalic and Subclavians: RIGHT Carotid: Right CCA: Unremarkable. Right ICA: Unremarkable. Right ECA: Unremarkable. LEFT Carotid: Left CCA: Unremarkable. Left ICA: Unremarkable. Left ECA: Unremarkable. Vertebrals: Arise from the subclavians. Both vertebrals form the basilar. RIGHT Vertebral: Dominant right vertebral artery. LEFT Vertebral: Unremarkable. Anatomy: [place] of [place] anatomy is normal. Aneurysm or avm: No intracranial aneurysms or large vascular malformations are identified. Anterior cerebral arteries: Unremarkable: Middle cerebral arteries: Unremarkable. Basilar artery: Unremarkable. Posterior cerebral arteries: Unremarkable. Other major branches of the posterior circulation: Unremarkable. Major venous structures: Unremarkable. CT/CTA Head AND Neck W/ Contrast IMPRESSION: Unremarkable examination. Reading Location: [place] [id number]
[2024-09-15 13:12] LABS: Absolute Lymphocyte Count 1.96 X10^3/uL (0.83-4.51); Basophil# 0.07 X10^3/uL; Basophil% 1.1 % (0-1); Eosinophil# 0.23 X10^3/uL; Eosinophils% 3.5 % (0-5); Hematocrit 37.5 % (37-47); Hemoglobin 12.5 g/dL (12.0-15.0); Lymphocyte # 1.96 X10^3/ul (0.83-4.51); Lymphocyte % 29.9 % (19-41); Mean Corp Hgb Conc 33.3 g/dL (32-36); Mean Corpuscular Hgb 30.5 pg (27.0-32.0); Mean Corpuscular Volume 91.5 fL (81-99); Mean Platelet Vol. 9.4 fl (6.2-12.0); Monocyte# 0.32 X10^3/uL; Monocyte% 4.9 % (0-10); NRBC Flagged by Analyzer 0 % (0-5); Neutrophil # 3.97 X10^3/uL (2.7-7.7); Neutrophil % 60.4 % (47-70); Platelet Count 279 K/mm3 (150-450); RBC Distribution Width CV 12.1 % (11.6-14.6); RBC Distribution Width SD 40.8 fl (35.1-43.9); White Blood Count 6.6 K/mm3 (4.4-11.0)
[2024-09-15 13:17] LABS: Internal QC Validated? YES +Cl - CLEAR BKGD; Pregnancy, Serum, hCG Quali. NEGATIVE Negative
[2024-09-15] MEDS: Ondansetron 4 MG/2 ML Vial IV (13:17)
[2024-09-15] MEDS: 0.9% Normal Saline (1000mL) 1,000 ML 1000 ML IV (13:17)
[2024-09-15] MEDS: Morphine 2 MG/ML Syringe IV (13:18)
[2024-09-15 13:38] LABS: ALB/GLOB Ratio 1.6 RATIO (0.9-2.4); AST(SGOT) 18 U/L (<=31); Alanine Aminotransfer ALT/SGPT 11 U/L (<=34); Albumin, Serum 3.8 g/dL (3.5-5.0); Alkaline Phosphatase 41 U/L (35-104); Anion Gap 9 (5-15); BUN 15 mg/dL (4-19); BUN/Creat Ratio 20.5 RATIO (10-20); Calcium,Total 8.9 mg/dL (7.6-11.0); Carbon Dioxide 25.1 mmol/L (21.0-32.0); Chloride 106 mmol/L (98-108); Creatinine, Serum 0.72 mg/dL (0.70-1.20); EST Glomerular Filtration Rate 104 (>60); Estimated Creatinine Clearance 83.41 ml/min (50-250); Globulin 2.5 g/dL (2.2-4.2); Glucose 78 mg/dL (70-99); Potassium 3.7 mmol/L (3.3-5.1); Protein, Total 6.3 g/dL (5.9-8.4); Sodium Level 140 mmol/L (133-145); Total Bilirubin 0.38 mg/dL (0.00-1.30)
[2024-09-15 13:39] LABS: Lactic Acid < 1.0 mmol/L (0.0-2.0)
--- NOTE | 2024-09-15 13:45 | RAD_ITS ---
PROCEDURE: CHEST PA AND LATERAL 09/15/2024 REASON FOR EXAM: CONFUSION TECHNIQUE: Frontal and lateral views of the chest. COMPARISON: None FINDINGS: Hardware: EKG electrodes are seen. Heart: The heart size is normal. Mediastinum: The mediastinal contour is unremarkable. Lungs: The lungs are clear. Bones: The bones are unremarkable. RAD/Chest PA and Lateral IMPRESSION: NEGATIVE CHEST Reading Location: [place] [id number]
[2024-09-15 13:58] LABS: Troponin T High Sensitivity < 6 ng/L (<=14)
[2024-09-15 14:21] LABS: Bacteria 0 SEEN /hpf (None Seen); Mucous, Urine 0 SEEN /hpf (<or=2+); Red Blood Cells-Urine 0 SEEN /hpf (0-5); White Blood Cells 0 SEEN /hpf (0-5)
[2024-09-15 14:27] LABS: Color, Urine Yellow (Yellow); Glucose, Dipstick Normal (Normal); Ketone-Dipstick Negative (Negative); Leukocyte Esterase-Dipstick Negative /ul (Negative); Nitrite-Dipstick Negative (Negative); Occult Blood-Urine Negative /ul (Negative); Protein-Dipstick Negative (Negative); Urine Bilirubin Dipstick Negative (Negative); Urine Clarity Clear (Clear); Urine Urobilinogen Normal (Normal)
[2024-09-15 14:32] LABS: Squamous Epithelial Cells - UA 0-5 SEEN /hpf (5-10)
[2024-09-15 14:44] LABS: Alcohol, Blood (Medical)-Serum < 10.1 mg/dL (<=10.0)
--- NOTE | 2024-09-15 15:00 | EX.ED.DYSGE1 ---
HPI History of Present Illness Chief Complaint: Weakness Narrative Narrative: Chief complaint and HPI: Fatigue and headache. 49-year-old female with past medical history of insomnia presents for evaluation of fatigue, generalized weakness, headache. History taken by patient as well as friend. Per friend in the room, yesterday patient woke up confused. She did not know what day it was, where she was, or who people were. Per their report she was evaluated at [facility] in which she had an extensive workup including CTA head and neck, CT chest, and other laboratory workup. By the end of her stay the patient was no longer confused and she was discharged home to follow-up with PCP. Friend did a wellness check today and found the patient asleep in the house. She was very fatigued and took a while to awaken. Shortly after awakening patient developed a headache that has gradually worsened. Mostly located in a band distribution as well as behind the right eye. She denies any history of migraines. She endorses photophobia and nausea. Denies any trauma or injury. States she is just fatigued with generalized weakness. Denies any confusion, URI symptoms, neck pain, chest pain, shortness of breath, vomiting, abdominal pain, constipation, diarrhea, dysuria. States she has been under a lot of stress as she is a single mother. Denies any drug abuse. Denies any neurological deficit. Friend states that she took orthostatic vital signs at home prior to arrival and they are positive. They are negative here. Review of systems: See HPI Medications: As listed on the chart Allergies: As listed on the chart PFSH: Per chart Vital signs: As listed on the chart. Reviewed. Physical exam: Gen: A&O x3, NAD but fatigued. Sitting in a dark room. Head: Normocephalic, atraumatic Eyes: No sclera icterus, conjunctiva clear, PERRL, EOMI ENT: Moist mucous membranes, tympanic membranes clear bilaterally, no facial asymmetry, posterior pharynx unremarkable, face nontender and atraumatic Neck: Trachea midline, No JVD, full range of motion, nontender, no meningismus CV: Intermittently bradycardic, normal rhythm, no murmurs, no peripheral edema Resp: Lungs CTA BL, no w/r/c GI: Abd soft, non-distended, non-tender, no r/r/g Musc: Full ROM, no deformity, strength +5/5 in all extremities, no pronator drift, no ataxia Skin: Warm, dry, intact Neuro: Alert, oriented, grossly intact, sensation intact, no focal deficits Psych: Cooperative, appropriate mood and affect [facility] Medical History (Updated 09/15/24 @ 12:03 by Belen Aaron) Anxiety Home Medications ?Medication ?Instructions ?Recorded ?Last Taken ?Type bupropion HCl 300 mg 24 hr tablet, 300 mg PO DAILY 02/05/19 07/28/19 05:15 History extended release clonazepam 0.5 mg tablet 0.5 mg PO DAILY PRN Anxiety 02/05/19 Unknown History dextroamphetamine-amphetamine ER 50 mg PO DAILY 02/05/19 Unknown History 30 mg 24hr capsule,extend release multivitamin with minerals 1 ea PO DAILY 07/21/19 Unknown History docusate sodium 100 mg capsule 100 mg PO BID PRN PRN Constipation 07/28/19 Unknown Rx #60 caps clonazepam 1 mg tablet 1 mg PO BID 09/15/24 Unknown History dextroamphetamine-amphetamine 20 1 tab PO DAILY 09/15/24 Unknown History mg tablet dextroamphetamine-amphetamine ER 2 cap PO .morning 09/15/24 Unknown History 20 mg 24hr capsule,extend release estradiol 0.075 mg/24 hr 1 patch transdermal DAILY 09/15/24 Unknown History semiweekly transdermal patch Allergy/AdvReac Type Severity Reaction Status Date / Time No Known Allergies Allergy Verified 09/15/24 11:09 Surgical History (Updated 09/15/24 @ 12:05 by Belen Aaron) H/O microdiscectomy H/O: hysterectomy History of appendectomy Social History Smoking Status: Former smoker EXAM Physical Exam Const Vital Signs: 09/15/24 11:10 09/15/24 12:06 09/15/24 12:07 Temperature 97.1 F L Temperature Source Temporal Pulse Rate 61 Pulse Rate [Lying] 61 Pulse Rate [Sitting (for 1 minute prior to obtaining)] 58 L Pulse Rate [Standing (for 1 minute prior to obtaining)] 63 Respiratory Rate 18 Respiratory Effort Normal Non-Labored Respiratory Pattern Normal Blood Pressure 138/90 H Blood Pressure [Lying] 128/85 H Blood Pressure [Sitting (for 1 minute prior to obtaining)] 139/86 H Blood Pressure [Standing (for 1 minute prior to obtaining)] 135/83 H Blood Pressure Mean 106 Blood Pressure Mean [Lying] 99 Blood Pressure Mean [Sitting (for 1 minute prior to obtaining)] 103 Blood Pressure Mean [Standing (for 1 minute prior to obtaining)] 100 Pulse Ox 100 Oxygen Delivery Method Room Air 09/15/24 12:32 09/15/24 13:10 09/15/24 14:00 Temperature Temperature Source Pulse Rate 48 L 64 52 L Pulse Rate [Lying] Pulse Rate [Sitting (for 1 minute prior to obtaining)] Pulse Rate [Standing (for 1 minute prior to obtaining)] Respiratory Rate 15 16 12 Respiratory Effort Respiratory Pattern Blood Pressure 129/89 H 133/86 H 145/87 H Blood Pressure [Lying] Blood Pressure [Sitting (for 1 minute prior to obtaining)] Blood Pressure [Standing (for 1 minute prior to obtaining)] Blood Pressure Mean 102 101 106 Blood Pressure Mean [Lying] Blood Pressure Mean [Sitting (for 1 minute prior to obtaining)] Blood Pressure Mean [Standing (for 1 minute prior to obtaining)] Pulse Ox 99 100 99 Oxygen Delivery Method Room Air Room Air 09/15/24 15:00 Temperature Temperature Source Pulse Rate 47 L Pulse Rate [Lying] Pulse Rate [Sitting (for 1 minute prior to obtaining)] Pulse Rate [Standing (for 1 minute prior to obtaining)] Respiratory Rate 16 Respiratory Effort Respiratory Pattern Blood Pressure 125/81 H Blood Pressure [Lying] Blood Pressure [Sitting (for 1 minute prior to obtaining)] Blood Pressure [Standing (for 1 minute prior to obtaining)] Blood Pressure Mean 95 Blood Pressure Mean [Lying] Blood Pressure Mean [Sitting (for 1 minute prior to obtaining)] Blood Pressure Mean [Standing (for 1 minute prior to obtaining)] Pulse Ox 99 Oxygen Delivery Method Room Air MDM MDM MDM Narrative Medical decision making narrative: 49-year-old female with past medical history of insomnia presents for evaluation of fatigue, generalized weakness, headache. Yesterday was confused evaluated in another emergency department with extensive workup. Confusion resulted and patient was discharged home. On presentation patient is alert but fatigued. No acute distress or confusion. Differential diagnosis includes but is not limited to migraine, tension headache, stress response, electrolyte abnormality, CHRISTI, anemia, UTI, intoxication, thyroid disease, , intracranial abnormality, low suspicion for SAH. NS bolus, Zofran, morphine ordered for symptoms. Extensive workup ordered. I [facility] the patient and could not find any results from yesterday's evaluation at [facility]. EKG and chest x-ray reviewed see below. CBC without leukocytosis or anemia. CMP unremarkable without electrolyte abnormality or CHRISTI. No transaminitis. Lactic acid unremarkable. TSH unremarkable. Serum negative. UA negative for UTI. Ethanol level negative. CT head and CTA head and neck unremarkable without any acute intracranial abnormality. On reevaluation, patient's headache has improved however she is still endorsing fatigue and generalized weakness. Urine drug screen positive for opiates however patient did receive morphine. She is positive for amphetamines but patient takes Adderall for her ADHD. On reevaluation, patient is still fatigued. States she does not feel herself. Given her symptoms as well as second presentation to an emergency department, I feel that the patient would benefit from admission for observation with MRI brain. Patient confirmed understanding of the plan. She was updated of all the results as well. Patient was discussed with the hospitalist service and accepted admission. EKG: Interpreted by me/EM physician: EKG shows sinus bradycardia. No acute ischemic changes. Heart rate 48. Diagnostic: Interpreted by me/EM physician: Chest x-ray without pneumonia, effusion, cardiomegaly, pneumothorax Impression: 1. Headache 2. Fatigue 3. Generalized weakness 4. Episode of confusion, resolved Lab Data Labs: Laboratory Results - last 24 hr 09/15/24 09/15/24 13:01 14:00 WBC 6.6 RBC 4.10 L Hgb 12.5 Hct 37.5 MCV 91.5 MCH 30.5 MCHC 33.3 RDW Std Deviation 40.8 RDW Coeff of Matias 12.1 Plt Count 279 MPV 9.4 Immature Gran % (Auto) 0.200 Neut % (Auto) 60.4 Lymph % (Auto) 29.9 [place] % (Auto) 4.9 Eos % (Auto) 3.5 Baso % (Auto) 1.1 H Absolute Neuts (auto) 4.0 Absolute Lymphs (auto) 1.96 Nucleated RBC % 0 Sodium 140 Potassium 3.7 Chloride 106 Carbon Dioxide 25.1 Anion Gap 9 BUN 15 Creatinine 0.72 Estim Creat Clear Calc 83.41 Est GFR (MDRD) Non-Af 104 BUN/Creatinine Ratio 20.5 H Glucose 78 Lactic Acid < 1.0 Calcium 8.9 Total Bilirubin 0.38 AST 18 ALT 11 Alkaline Phosphatase 41 Troponin T High Sens < 6 Total Protein 6.3 Albumin 3.8 Globulin 2.5 Albumin/Globulin Ratio 1.6 TSH 1.490 Serum , Qual NEGATIVE Urine Color Yellow Urine Clarity Clear Urine pH 6.0 Ur Specific [place] 1.010 Urine Protein Negative Urine Glucose (UA) Normal Urine Ketones Negative Urine Occult Blood Negative Urine Nitrite Negative Urine Bilirubin Negative Urine Urobilinogen Normal Ur Leukocyte Esterase Negative Urine RBC 0 SEEN Urine WBC 0 SEEN Ur Squamous Epith Cells 0-5 SEEN Urine Bacteria 0 SEEN Urine Mucus 0 SEEN Urine Opiates Screen PRESUMPTIVE POSITIVE U Buprenorphine Qual NEGATIVE Ur Oxycodone Screen NEGATIVE Urine Methadone Screen NEGATIVE Urine Fentanyl Screen NEGATIVE Ur Barbiturates Screen NEGATIVE Ur Phencyclidine Scrn NEGATIVE Ur Amphetamines Screen PRESUMPTIVE POSITIVE U Benzodiazepines Scrn NEGATIVE Urine Cocaine Screen NEGATIVE U Cannabinoids Screen NEGATIVE Ethyl Alcohol < 10.1 Radiography Diagnostic Testing: Clinical Impression(s) from Imaging Studies Head/Neck CTA 09/15/24 12:45 IMPRESSION: Unremarkable examination. Reading Location: [facility]--1 Chest X-Ray 09/15/24 13:45 IMPRESSION: NEGATIVE CHEST Reading Location: [facility]-IR-1 Discharge Plan Triage Chief Complaint: Weakness ED Provider: Luis Carlos Sales Dx/Rx/DC Orders Prescriptions: No Action clonazepam 0.5 MG tablet 0.5 mg PO DAILY PRN (Reason: Anxiety) dextroamphetamine-amphetamine 30 MG capsule,extended release 24hr 50 mg PO DAILY bupropion HCl 300 MG tablet extended release 24 hr 300 mg PO DAILY multivitamin with minerals 1 EACH tablet 1 ea PO DAILY docusate sodium 100 MG capsule 100 mg PO BID PRN PRN (Reason: Constipation) Qty: 60 1RF clonazepam 1 mg tablet 1 mg PO BID dextroamphetamine-amphetamine 20 mg capsule,extended release 24hr 2 cap PO .morning dextroamphetamine-amphetamine 20 mg tablet 1 tab PO DAILY estradiol 0.075 mg/24 hr patch semiweekly 1 patch transdermal DAILY Primary Care Provider: Марина Villanueva Referrals: Марина Villanueva DO [Primary Care Provider] - Print Language: Bengali
--- NOTE | 2024-09-15 15:35 | PCM.HP.STD ---
HPI - General General Date of Admission: 09/15/24 Date of Service: 09/15/24 Chief Complaint: generalised weakness HPI Narrative WILY JEWELL, is a 49 F with a PMH as outlined who presents via the ED On 09/15/2024 with a complaint of weakness. Her only significant PMH is insomnia. She was brought in via the ED after her frined found her confused upon waking up yesterday. She did not know where she was, her name or who anyone alise around her was. Per her friend, she was sent to an outside hospital ED where she had extensive workup including CT brain, CTA head and neck and CT chest which were all unremarkable. Labs were apparently normal. ED tried to look up the records from [facility] but it was unavailable. She was sent home, but her symptoms persisted so her friends brought her back in to the ED. She admitted to a headache, but denied any fever, chills, palpitations, cough, chest pain, nausea, vomiting or any other symptoms. Review of systems was otherwise negative. Her friend said she checked her orthostatics which were positive. Vitals in the ED were Bp of 125/81, NV of 47, RR of 16 and was saturating at 99% on room air. CBC showed hb of 12.5, wbc of 6.6 and platelets of 279. Chemistry showed sodium of 140, potassium of 3.7 and Cr of 0.72. Lactic acid was <1 and TSH was WNL. Urine tox was positive for amphetamines; she is on Adderall. CT of the brain showed no acute intracranial pathology. She is being admitted to be managed for debility and weakness of unclear etiology. [facility] Medical History (Updated 09/15/24 @ 16:00 by Judy Fierro) Kidney stones GERD (gastroesophageal reflux disease) Former smoker Hypertension Migraines Anxiety Home Medications ?Medication ?Instructions ?Recorded ?Last Taken ?Type bupropion HCl 300 mg 24 hr tablet, 300 mg PO DAILY 02/05/19 07/28/19 05:15 History extended release clonazepam 0.5 mg tablet 0.5 mg PO DAILY PRN Anxiety 02/05/19 Unknown History dextroamphetamine-amphetamine ER 50 mg PO DAILY 02/05/19 Unknown History 30 mg 24hr capsule,extend release multivitamin with minerals 1 ea PO DAILY 07/21/19 Unknown History docusate sodium 100 mg capsule 100 mg PO BID PRN PRN Constipation 07/28/19 Unknown Rx #60 caps clonazepam 1 mg tablet 1 mg PO BID 09/15/24 Unknown History dextroamphetamine-amphetamine 20 1 tab PO DAILY 09/15/24 Unknown History mg tablet dextroamphetamine-amphetamine ER 2 cap PO .morning 09/15/24 Unknown History 20 mg 24hr capsule,extend release estradiol 0.075 mg/24 hr 1 patch transdermal DAILY 09/15/24 Unknown History semiweekly transdermal patch Allergy/AdvReac Type Severity Reaction Status Date / Time No Known Allergies Allergy Verified 09/15/24 11:09 Surgical History (Updated 09/15/24 @ 12:05 by Belen Aaron) H/O microdiscectomy H/O: hysterectomy History of appendectomy Social History Smoking Status: Former smoker ROS Constitutional Constitutional: Reports fatigue, malaise and weakness; Denies anorexia, chills or fever(s) Eyes Eyes: Denies change in vision ENT HEENT: Denies dysphagia, headache(s) or sore throat Cardiovascular Cardiovascular: Denies chest pain, dyspnea on exertion, edema, lightheadedness, orthopnea, palpitations, paroxysmal nocturnal dyspnea, rapid heart rate or syncope Respiratory/Chest Respiratory/Chest: Denies cough, dyspnea, shortness of breath at rest or shortness of breath with exertion Gastrointestinal Gastrointestinal: Denies abdominal pain, constipation, diarrhea, nausea or vomiting Genitourinary Genitourinary: Denies dysuria Neurologic Neurologic: Denies confusion, dizziness, focal weakness, headache(s), seizure-like activity, seizures or syncope Psychiatric Psychiatric: Denies anxiety or depression Endocrine Endocrinology: Denies change in body appearance Hematologic/Lymphatic Hematologic/Lymphatic: Denies anemia Vital Signs Vital Signs Vital Signs: 09/15/24 11:10 09/15/24 12:06 09/15/24 12:07 Temperature 97.1 F L Temperature Source Temporal Pulse Rate 61 Pulse Rate [Lying] 61 Pulse Rate [Sitting (for 1 minute prior to obtaining)] 58 L Pulse Rate [Standing (for 1 minute prior to obtaining)] 63 Respiratory Rate 18 Respiratory Effort Normal Non-Labored Respiratory Pattern Normal Blood Pressure 138/90 H Blood Pressure [Lying] 128/85 H Blood Pressure [Sitting (for 1 minute prior to obtaining)] 139/86 H Blood Pressure [Standing (for 1 minute prior to obtaining)] 135/83 H Blood Pressure Mean 106 Blood Pressure Mean [Lying] 99 Blood Pressure Mean [Sitting (for 1 minute prior to obtaining)] 103 Blood Pressure Mean [Standing (for 1 minute prior to obtaining)] 100 Pulse Ox 100 Oxygen Delivery Method Room Air 09/15/24 12:32 09/15/24 13:10 09/15/24 14:00 Temperature Temperature Source Pulse Rate 48 L 64 52 L Pulse Rate [Lying] Pulse Rate [Sitting (for 1 minute prior to obtaining)] Pulse Rate [Standing (for 1 minute prior to obtaining)] Respiratory Rate 15 16 12 Respiratory Effort Respiratory Pattern Blood Pressure 129/89 H 133/86 H 145/87 H Blood Pressure [Lying] Blood Pressure [Sitting (for 1 minute prior to obtaining)] Blood Pressure [Standing (for 1 minute prior to obtaining)] Blood Pressure Mean 102 101 106 Blood Pressure Mean [Lying] Blood Pressure Mean [Sitting (for 1 minute prior to obtaining)] Blood Pressure Mean [Standing (for 1 minute prior to obtaining)] Pulse Ox 99 100 99 Oxygen Delivery Method Room Air Room Air 09/15/24 15:00 Temperature Temperature Source Pulse Rate 47 L Pulse Rate [Lying] Pulse Rate [Sitting (for 1 minute prior to obtaining)] Pulse Rate [Standing (for 1 minute prior to obtaining)] Respiratory Rate 16 Respiratory Effort Respiratory Pattern Blood Pressure 125/81 H Blood Pressure [Lying] Blood Pressure [Sitting (for 1 minute prior to obtaining)] Blood Pressure [Standing (for 1 minute prior to obtaining)] Blood Pressure Mean 95 Blood Pressure Mean [Lying] Blood Pressure Mean [Sitting (for 1 minute prior to obtaining)] Blood Pressure Mean [Standing (for 1 minute prior to obtaining)] Pulse Ox 99 Oxygen Delivery Method Room Air Weight Weight: 132 lb 3.2 oz Body Mass Index (BMI) 22.6 Physical Exam Const Negative for alert, oriented x3 or no apparent distress Orientation / Consciousness: lethargic HEENT normocephalic, head/scalp atraumatic and moist oral mucous membranes Mouth: oral and palatal mucosa normal Eyes PERRL and EOMs intact bilaterally Neck no lymphadenopathy and supple Resp normal respiratory effort, no use of accessory muscles and clear to auscultation bilaterally Cardio regular rate, regular rhythm, S1 normal heart sound, S2 normal heart sound and no murmurs GI normal to inspection, nondistended, normoactive bowel sounds, soft to palpation, non-tender and non-distended Extremity normal to inspection, full ROM and no clubbing, cyanosis or edema Neuro CN's II-XII intact bilaterally and moves all extremities Sensorium / Orientation: awake and alert Motor Exam: strength 5/5 throughout Results Lab / Micro Data 09/15/24 13:01 09/15/24 13:01 Labs: Laboratory Results - last 24 hr 09/15/24 13:01: WBC 6.6, RBC 4.10 L, Hgb 12.5, Hct 37.5, MCV 91.5, MCH 30.5, MCHC 33.3, RDW Std Deviation 40.8, RDW Coeff of Matias 12.1, Plt Count 279, MPV 9.4, Immature Gran % (Auto) 0.200, Neut % (Auto) 60.4, Lymph % (Auto) 29.9, Dent % (Auto) 4.9, Eos % (Auto) 3.5, Baso % (Auto) 1.1 H, Absolute Neuts (auto) 4.0, Absolute Lymphs (auto) 1.96, Nucleated RBC % 0, Sodium 140, Potassium 3.7, Chloride 106, Carbon Dioxide 25.1, Anion Gap 9, BUN 15, Creatinine 0.72, Estim Creat Clear Calc 83.41, Est GFR (MDRD) Non-Af 104, BUN/Creatinine Ratio 20.5 H, Glucose 78, Lactic Acid < 1.0, Calcium 8.9, Total Bilirubin 0.38, AST 18, ALT 11, Alkaline Phosphatase 41, Troponin T High Sens < 6, Total Protein 6.3, Albumin 3.8, Globulin 2.5, Albumin/Globulin Ratio 1.6, TSH 1.490, Serum , Qual NEGATIVE, Ethyl Alcohol < 10.1 09/15/24 14:00: Urine Color Yellow, Urine Clarity Clear, Urine pH 6.0, Ur Specific Stanley 1.010, Urine Protein Negative, Urine Glucose (UA) Normal, Urine Ketones Negative, Urine Occult Blood Negative, Urine Nitrite Negative, Urine Bilirubin Negative, Urine Urobilinogen Normal, Ur Leukocyte Esterase Negative, Urine RBC 0 SEEN, Urine WBC 0 SEEN, Ur Squamous Epith Cells 0-5 SEEN, Urine Bacteria 0 SEEN, Urine Mucus 0 SEEN Imaging Radiology Impression Head/Neck CTA 09/15/24 12:45 IMPRESSION: Unremarkable examination. Reading Location: [facility] Chest X-Ray 09/15/24 13:45 IMPRESSION: NEGATIVE CHEST Reading Location: [facility] Assessment & Plan Assessment/Plan (1) Debility: (2) Weakness: PLAN: Plan #Lethargy and weakness etiology is unclear was seen at outside hospital ED yesterday, according to patient and her friend. She had an extensive workup there which was all negative. Her symptoms however persisted so they brought her into the ED. Friend said they checked orthostatics at home and was positive. However in the ED orthostatics are negative. CBC and BMP unremarkable here. Urine tox positive for amphetamines but he is on Adderall. CT of the brain and CTA of the head and neck all negative. Admit to [facility] under observation. TSH is also normal. Urinalysis showed no evidence of UTI. Get MRI of the brain with and without contrast. Consults neurology. MIgrainoid headache patient complaining of headache which is unilateral. She denies it being pounding in nature, but says she has associated photophobia. Will give sumatriptan x 1 and PO tylenol as well as PO oxycodone prn #Sinus bradycardia: Patient has mild bradycardia with heart rate of 47 at time of review. TSH WNL Currently asymptomatic. Will monitor. if it worsens or persists, will get 2D echo #Depression and anxiety: On bupropion and clonazepam. DVT prophylaxis: SCDs. Charges/Coding Visit Charges Inpatient E&M: 54487 Init Hosp L2
[2024-09-15 15:36] LABS: Amphetamine Urine PRESUMPTIVE POSITIVE (<1000 ng/mL); Barbiturate Urine NEGATIVE (< 200 ng/mL); Benzodiazepine Urine NEGATIVE (< 200 ng/mL); Buprenorphine Urine NEGATIVE (< 200 ng/mL); Cocaine Urine NEGATIVE (< 300 ng/mL); Fentanyl, Urine NEGATIVE; Methadone Urine NEGATIVE (< 300 ng/mL); Opiates Urine PRESUMPTIVE POSITIVE (< 300 ng/mL); Oxycodone, Urine NEGATIVE (< 100 ng/mL); PCP Urine NEGATIVE (< 25 ng/mL); THC Urine NEGATIVE (< 50 ng/mL)
--- NOTE | 2024-09-15 17:22 | MRI_ITS ---
PROCEDURE: BRAIN W/WO CONTRAST N/A REASON FOR EXAM: HEADACHE TECHNIQUE: Routine brain MRI without and with intravenous contrast. CONTRAST: Clariscan IV COMPARISON: Preceding CT FINDINGS: No acute infarct, mass effect or evidence of intracranial hemorrhage. No abnormal parenchymal signal intensity. Ventricles are within limits and midline. CSF spaces appear within limits. Major intracranial flow voids appear within limits. Internal auditory canals appear within limits. Mastoids, paranasal sinuses and orbits appear within limits. No abnormal enhancement. Suprasellar cistern, optic chiasm and pituitary appear within limits as imaged. MRI/Brain W/WO Contrast IMPRESSION: MRI of the brain without and with contrast appears within limits as above. Reading Location: [id number]
[2024-09-15] MEDS: 0.9% Normal Saline (1000mL) 1,000 ML 125 ML IV (18:06)
[2024-09-15] MEDS: SUMAtriptan 6 MG/0.5 ML Vial SC (21:14)
[2024-09-15] MEDS: clonazePAM 1 MG Tablet PO (21:47)
[2024-09-16] MEDS: 0.9% Normal Saline (1000mL) 1,000 ML 125 ML IV (03:44)
[2024-09-16 03:45] VITALS: BP 92/62; PULSE 54; RESP 16; TEMP 36.6; O2SAT 98
[2024-09-16 06:38] VITALS: BP 102/74; PULSE 50; O2SAT 97
[2024-09-16 07:37] LABS: Absolute Lymphocyte Count 2.31 X10^3/uL (0.83-4.51); Absolute Neutrophil Count 3.7 X10^3/uL (2.0-7.7); Basophil# 0.07 X10^3/uL; Eosinophils% 4.4 % (0-5); Hematocrit 35.6 % (37-47); Hemoglobin 11.7 g/dL (12.0-15.0); Lymphocyte # 2.31 X10^3/ul (0.83-4.51); Mean Corp Hgb Conc 32.9 g/dL (32-36); Mean Corpuscular Hgb 30.5 pg (27.0-32.0); Mean Platelet Vol. 9.8 fl (6.2-12.0); Monocyte# 0.38 X10^3/uL; Monocyte% 5.6 % (0-10); NRBC Flagged by Analyzer 0 % (0-5); Neutrophil # 3.71 X10^3/uL (2.7-7.7); Neutrophil % 54.6 % (47-70); Platelet Count 273 K/mm3 (150-450); RBC Distribution Width CV 12.1 % (11.6-14.6); RBC Distribution Width SD 41.2 fl (35.1-43.9); Red Blood Count 3.83 M/mm3 (4.2-5.4); White Blood Count 6.8 K/mm3 (4.4-11.0)
[2024-09-16 08:48] LABS: Anion Gap 9 (5-15); BUN 12 mg/dL (4-19); BUN/Creat Ratio 17.6 RATIO (10-20); Calcium,Total 8.6 mg/dL (7.6-11.0); Carbon Dioxide 23.1 mmol/L (21.0-32.0); Chloride 109 mmol/L (98-108); Creatinine, Serum 0.67 mg/dL (0.70-1.20); EST Glomerular Filtration Rate 108 (>60); Estimated Creatinine Clearance 89.64 ml/min (50-250); Glucose 77 mg/dL (70-99); Potassium 3.8 mmol/L (3.3-5.1); Sodium Level 142 mmol/L (133-145)
--- NOTE | 2024-09-16 10:35 | NEURO.CONS ---
Assessment and Plan: Neuro Assessment/Plan WILY JEWELL is a 49 F with a past medical history of ADHD, anxiety, depression, being evaluated by Teleneurology for prolonged confusion. Patient on history denies all ingestion but does note that a couple days prior to this her Adderrall changed. She also had a severe headache on the second day of her severe somnolence. The change in her adderall pill may have triggered a migraine with an extensive prodrome of somnolence and irritability. Symptoms are improved but not gone and imaging is benign. This does not sound like seizure. Rather this is most consistent with a severe atypical headache or ingestion of a toxic substance or change in her medications. Since she is feeling better will not pursue but counseled patient to pay attention to changes in the pill appearance for her medications and discuss with her pharmacy. No further workup at this time. I personally attended this patient and spent a total time of 45minutes evaluating this patient including clinical assessment, review of chart, medical history imaging, and determining appropriate treatment and workup. HPI Consult Data Date of Consult: 09/20/24 HPI Narrative HPI Narrative: WILY JEWELL, is a 49 F with a PMH as outlined who presents via the ED On 09/15/2024 with a complaint of weakness. Her only significant PMH is insomnia. She was brought in via the ED after her frined found her confused upon waking up yesterday. She did not know where she was, her name or who anyone alise around her was. Per her friend, she was sent to an outside hospital ED where she had extensive workup including CT brain, CTA head and neck and CT chest which were all unremarkable. Labs were apparently normal. ED tried to look up the records from [facility] but it was unavailable. She was sent home, but her symptoms persisted so her friends brought her back in to the ED. She admitted to a headache, but denied any fever, chills, palpitations, cough, chest pain, nausea, vomiting or any other symptoms. Review of systems was otherwise negative. Her friend said she checked her orthostatics which were positive. Neurologic History On Thursday morning she woke up and has difficulty getting up and was confused and went to the hospital and went to [facility]. A friends of hers called the squad. She was then sent home bc all her tests were normal but she felt weak all over and tired. Had a slight headache at that point. When she got home she took ibuprofen. When she got home she kept sleeping - did not wake up for her alarm. Coworkers came to her house and had to come into house and wake her up and could not wake up so brought her to the hospital. Yesterday she had severe headache on the R side of her face - never felt like any headache she had before. Sensitive to the light. Will occasionally get headaches, once a week. takes bupriopion, , klonopin 0.5mg at night, adderrall takes 40mg ER and 20mg in afternoon. She's been steady on these meds for at least the last year. No recreational medication. No herbal supploements, no changes to diet. Currently she still off - feels very tired still and feels weak all over. She has not had her adderrall for 3 days now. The capsules for the Adderall she is taking now are a different color than normal. That started with the last refill - 2 weeks ago. This last week she has noted more headaches, energy levels have been about the same. Currently no headache but the light is still bothering her. [facility] Medical History (Updated 09/15/24 @ 16:00 by Judy Fierro) Kidney stones GERD (gastroesophageal reflux disease) Former smoker Hypertension Migraines Anxiety Home Medications ?Medication ?Instructions ?Recorded ?Last Taken ?Type bupropion HCl 300 mg 24 hr tablet, 300 mg PO DAILY 02/05/19 07/28/19 05:15 History extended release clonazepam 0.5 mg tablet 0.5 mg PO DAILY PRN Anxiety 02/05/19 Unknown History multivitamin with minerals 1 ea PO DAILY 07/21/19 Unknown History docusate sodium 100 mg capsule 100 mg PO BID PRN PRN Constipation 07/28/19 Unknown Rx #60 caps clonazepam 1 mg tablet 1 mg PO BID 09/15/24 Unknown History dextroamphetamine-amphetamine 20 1 tab PO DAILY 09/15/24 Unknown History mg tablet dextroamphetamine-amphetamine ER 2 cap PO .morning 09/15/24 Unknown History 20 mg 24hr capsule,extend release estradiol 0.075 mg/24 hr 1 patch transdermal DAILY 09/15/24 Unknown History semiweekly transdermal patch ibuprofen 400 mg tablet 400 mg PO Q6H PRN PRN Headache #0 09/16/24 Unknown Rx tabs Allergy/AdvReac Type Severity Reaction Status Date / Time No Known Allergies Allergy Verified 09/15/24 11:09 Surgical History (Updated 09/15/24 @ 12:05 by Belen Aaron) H/O microdiscectomy H/O: hysterectomy History of appendectomy Social History Smoking Status: Former smoker Vital Signs Vital Signs Vital Signs: 09/15/24 11:10 09/15/24 12:06 09/15/24 12:07 Temperature 97.1 F L Temperature Source Temporal Pulse Rate 61 Pulse Rate [Lying] 61 Pulse Rate [Sitting (for 1 minute prior to obtaining)] 58 L Pulse Rate [Standing (for 1 minute prior to obtaining)] 63 Pulse Strength Respiratory Rate 18 Respiratory Effort Normal Non-Labored Respiratory Depth Respiratory Pattern Normal Blood Pressure 138/90 H Blood Pressure [Lying] 128/85 H Blood Pressure [Sitting (for 1 minute prior to obtaining)] 139/86 H Blood Pressure [Standing (for 1 minute prior to obtaining)] 135/83 H Blood Pressure Mean 106 Blood Pressure Mean [Lying] 99 Blood Pressure Mean [Sitting (for 1 minute prior to obtaining)] 103 Blood Pressure Mean [Standing (for 1 minute prior to obtaining)] 100 Blood Pressure Source Blood Pressure Position Blood Pressure Location Pulse Ox 100 Oxygen Delivery Method Room Air 09/15/24 12:32 09/15/24 13:10 09/15/24 14:00 Temperature Temperature Source Pulse Rate 48 L 64 52 L Pulse Rate [Lying] Pulse Rate [Sitting (for 1 minute prior to obtaining)] Pulse Rate [Standing (for 1 minute prior to obtaining)] Pulse Strength Respiratory Rate 15 16 12 Respiratory Effort Respiratory Depth Respiratory Pattern Blood Pressure 129/89 H 133/86 H 145/87 H Blood Pressure [Lying] Blood Pressure [Sitting (for 1 minute prior to obtaining)] Blood Pressure [Standing (for 1 minute prior to obtaining)] Blood Pressure Mean 102 101 106 Blood Pressure Mean [Lying] Blood Pressure Mean [Sitting (for 1 minute prior to obtaining)] Blood Pressure Mean [Standing (for 1 minute prior to obtaining)] Blood Pressure Source Blood Pressure Position Blood Pressure Location Pulse Ox 99 100 99 Oxygen Delivery Method Room Air Room Air 09/15/24 15:00 09/15/24 16:00 09/15/24 16:11 Temperature 97.4 F L Temperature Source Pulse Rate 47 L 49 L 58 L Pulse Rate [Lying] Pulse Rate [Sitting (for 1 minute prior to obtaining)] Pulse Rate [Standing (for 1 minute prior to obtaining)] Pulse Strength Respiratory Rate 16 16 16 Respiratory Effort Respiratory Depth Respiratory Pattern Blood Pressure 125/81 H 107/73 107/73 Blood Pressure [Lying] Blood Pressure [Sitting (for 1 minute prior to obtaining)] Blood Pressure [Standing (for 1 minute prior to obtaining)] Blood Pressure Mean 95 84 84 Blood Pressure Mean [Lying] Blood Pressure Mean [Sitting (for 1 minute prior to obtaining)] Blood Pressure Mean [Standing (for 1 minute prior to obtaining)] Blood Pressure Source Blood Pressure Position Blood Pressure Location Pulse Ox 99 100 100 Oxygen Delivery Method Room Air Room Air 09/15/24 17:27 09/15/24 20:08 09/15/24 21:25 Temperature 98.6 F 97.9 F 97.3 F L Temperature Source Temporal Oral Oral Pulse Rate 64 56 L 56 L Pulse Rate [Lying] Pulse Rate [Sitting (for 1 minute prior to obtaining)] Pulse Rate [Standing (for 1 minute prior to obtaining)] Pulse Strength Respiratory Rate 16 16 16 Respiratory Effort Respiratory Depth Respiratory Pattern Blood Pressure 136/98 H 139/83 H 161/96 H Blood Pressure [Lying] Blood Pressure [Sitting (for 1 minute prior to obtaining)] Blood Pressure [Standing (for 1 minute prior to obtaining)] Blood Pressure Mean 110 101 117 Blood Pressure Mean [Lying] Blood Pressure Mean [Sitting (for 1 minute prior to obtaining)] Blood Pressure Mean [Standing (for 1 minute prior to obtaining)] Blood Pressure Source Monitor Monitor Monitor Blood Pressure Position Semi-Fowlers Semi-Fowlers Semi-Fowlers Blood Pressure Location Right Arm Right Arm Right Arm Pulse Ox 100 96 97 Oxygen Delivery Method Room Air Room Air Room Air 09/15/24 21:28 09/15/24 22:00 09/16/24 03:45 Temperature 97.9 F Temperature Source Oral Pulse Rate 54 L 54 L Pulse Rate [Lying] Pulse Rate [Sitting (for 1 minute prior to obtaining)] Pulse Rate [Standing (for 1 minute prior to obtaining)] Pulse Strength Normal (2+) Respiratory Rate 16 Respiratory Effort Normal Non-Labored Respiratory Depth Normal Respiratory Pattern Normal Blood Pressure 92/62 Blood Pressure [Lying] Blood Pressure [Sitting (for 1 minute prior to obtaining)] Blood Pressure [Standing (for 1 minute prior to obtaining)] Blood Pressure Mean 72 Blood Pressure Mean [Lying] Blood Pressure Mean [Sitting (for 1 minute prior to obtaining)] Blood Pressure Mean [Standing (for 1 minute prior to obtaining)] Blood Pressure Source Blood Pressure Position Blood Pressure Location Pulse Ox 98 Oxygen Delivery Method Room Air 09/16/24 06:38 Temperature Temperature Source Pulse Rate 50 L Pulse Rate [Lying] Pulse Rate [Sitting (for 1 minute prior to obtaining)] Pulse Rate [Standing (for 1 minute prior to obtaining)] Pulse Strength Respiratory Rate Respiratory Effort Respiratory Depth Respiratory Pattern Blood Pressure 102/74 Blood Pressure [Lying] Blood Pressure [Sitting (for 1 minute prior to obtaining)] Blood Pressure [Standing (for 1 minute prior to obtaining)] Blood Pressure Mean 83 Blood Pressure Mean [Lying] Blood Pressure Mean [Sitting (for 1 minute prior to obtaining)] Blood Pressure Mean [Standing (for 1 minute prior to obtaining)] Blood Pressure Source Monitor Blood Pressure Position Semi-Fowlers Blood Pressure Location Left Arm Pulse Ox 97 Oxygen Delivery Method Room Air Weight Weight: 59.8 kg Body Mass Index (BMI) 22.6 EEG Results Procedure Details EEG Procedure Details: WILY JEWELL is a 49 year old F with a past medical history of , who presents for evaluation of Electroencephalogram on DATE at TIME Physical Exam Narrative -? General: Laying comfortably in bed; in no acute distress. -? HENT: Normal oropharynx and mucosa. Normal external appearance of ears and nose. Exophthalmos. -? Neck: Supple, no pain or tenderness -? CV:? No peripheral edema. -? Pulmonary:? Normal respiratory effort. -? Ext: No cyanosis, edema, or deformity -? Skin: No rash. Normal palpation of skin.? -? Musculoskeletal: full range of motion; no joint tenderness. Normal digits and nails by inspection. No clubbing. -? NEURO: -? Mental Status: The patient was alert and oriented to time, place, and person. Normal recent/remote memory, concentration, and general fund of knowledge. -? Language: speech is clear? Naming, repetition, fluency, and comprehension intact. -? Cranial Nerves: PERRL 4 mm/brisk. EOMI, visual machado full, no facial asymmetry, facial sensation intact, hearing intact, tongue midline, no evidence of atrophy or fibrillations. -? Motor: normal bulk, tone, and strength throughout. No pronator drift or satelliting. Upper and lower extremities equal bilaterally. -? Detailed strength exam as performed by the nurse/GABRIEL and witnessed by the physician: R L SA 5 5 EE EF 5 5 WE WF Curber HF 5 5 KE KF DF PF -? Tone: is normal and bulk is normal -? Sensation- Intact to light touch bilaterally -? Coordination: No dysmetria on [id number], finger follow finger or [id number]. -? Gait- deferred Lab / Micro Data 09/16/24 06:39 09/16/24 06:39 Labs: Laboratory Results - last 24 hr 09/15/24 13:01: WBC 6.6, RBC 4.10 L, Hgb 12.5, Hct 37.5, MCV 91.5, MCH 30.5, MCHC 33.3, RDW Std Deviation 40.8, RDW Coeff of Matias 12.1, Plt Count 279, MPV 9.4, Immature Gran % (Auto) 0.200, Neut % (Auto) 60.4, Lymph % (Auto) 29.9, Bonner % (Auto) 4.9, Eos % (Auto) 3.5, Baso % (Auto) 1.1 H, Absolute Neuts (auto) 4.0, Absolute Lymphs (auto) 1.96, Nucleated RBC % 0, Sodium 140, Potassium 3.7, Chloride 106, Carbon Dioxide 25.1, Anion Gap 9, BUN 15, Creatinine 0.72, Estim Creat Clear Calc 83.41, Est GFR (MDRD) Non-Af 104, BUN/Creatinine Ratio 20.5 H, Glucose 78, Lactic Acid < 1.0, Calcium 8.9, Total Bilirubin 0.38, AST 18, ALT 11, Alkaline Phosphatase 41, Troponin T High Sens < 6, Total Protein 6.3, Albumin 3.8, Globulin 2.5, Albumin/Globulin Ratio 1.6, TSH 1.490, Serum , Qual NEGATIVE, Ethyl Alcohol < 10.1 09/15/24 14:00: Urine Color Yellow, Urine Clarity Clear, Urine pH 6.0, Ur Specific [place] 1.010, Urine Protein Negative, Urine Glucose (UA) Normal, Urine Ketones Negative, Urine Occult Blood Negative, Urine Nitrite Negative, Urine Bilirubin Negative, Urine Urobilinogen Normal, Ur Leukocyte Esterase Negative, Urine RBC 0 SEEN, Urine WBC 0 SEEN, Ur Squamous Epith Cells 0-5 SEEN, Urine Bacteria 0 SEEN, Urine Mucus 0 SEEN, Urine Opiates Screen PRESUMPTIVE POSITIVE, U Buprenorphine Qual NEGATIVE, Ur Oxycodone Screen NEGATIVE, Urine Methadone Screen NEGATIVE, Urine Fentanyl Screen NEGATIVE, Ur Barbiturates Screen NEGATIVE, Ur Phencyclidine Scrn NEGATIVE, Ur Amphetamines Screen PRESUMPTIVE POSITIVE, U Benzodiazepines Scrn NEGATIVE, Urine Cocaine Screen NEGATIVE, U Cannabinoids Screen NEGATIVE 09/16/24 06:39: WBC 6.8, RBC 3.83 L, Hgb 11.7 L, Hct 35.6 L, MCV 93.0, MCH 30.5, MCHC 32.9, RDW Std Deviation 41.2, RDW Coeff of Matias 12.1, Plt Count 273, MPV 9.8, Immature Gran % (Auto) 0.400, Neut % (Auto) 54.6, Lymph % (Auto) 34.0, Bonner % (Auto) 5.6, Eos % (Auto) 4.4, Baso % (Auto) 1.0, Absolute Neuts (auto) 3.7, Absolute Lymphs (auto) 2.31, Nucleated RBC % 0, Sodium 142, Potassium 3.8, Chloride 109 H, Carbon Dioxide 23.1, Anion Gap 9, BUN 12, Creatinine 0.67 L, Estim Creat Clear Calc 89.64, Est GFR (MDRD) Non-Af 108, BUN/Creatinine Ratio 17.6, Glucose 77, Calcium 8.6 Imaging Radiology Impression Head/Neck CTA 09/15/24 12:45 IMPRESSION: Unremarkable examination. Reading Location: [facility] Chest X-Ray 09/15/24 13:45 IMPRESSION: NEGATIVE CHEST Reading Location: [place] [id number] Brain MRI 09/15/24 17:22 IMPRESSION: MRI of the brain without and with contrast appears within limits as above. Reading Location: [id number] Active Medications Active Medications Active Medications: Current Medications Generic Name Dose Route Start Last Admin Trade Name Freq PRN Reason Stop Dose Admin Acetaminophen 650 mg 09/15/24 17:22 Acetaminophen 325 Mg Tablet PO Q6H PRN PRN Pain 1-10 Or Fever >100.7 Bupropion HCl 300 mg 09/16/24 10:00 Bupropion (Xl) 300 Mg Tablet.Xl PO DAILY TOBIN Clonazepam 0.5 mg 09/15/24 17:22 Clonazepam 0.5 Mg Tablet PO DAILY PRN Anxiety Clonazepam 1 mg 09/15/24 22:00 09/15/24 21:47 Clonazepam 1 Mg Tablet PO 1 mg BID TOBIN Administration Enoxaparin Sodium 40 mg 09/16/24 10:00 Enoxaparin 40 Mg/0.4 Ml Syringe SC DAILY TOBIN Sodium Chloride 1,000 mls @ 125 mls/hr 09/15/24 17:22 09/16/24 03:44 IV 09/16/24 11:59 125 mls/hr .Q8H TOBIN Administration Ibuprofen 400 mg 09/16/24 10:05 Ibuprofen 400 Mg Tablet PO Q4H PRN PRN HEADACHE Iopamidol 0 ml 09/15/24 17:22 09/15/24 21:15 Contrast Allergy Safety Check IV Not Given X1 TOBIN Morphine Sulfate 2 - 4 mg 09/15/24 17:22 Morphine 2 Mg/Ml Syringe IV Q3H PRN PRN Pain Score 6-10 Nitroglycerin 0.4 mg 09/15/24 17:22 Nitroglycerin (Inpatient Use) 0.4 Mg Tab.Subl SL Q5M PRN CARDIAC/CHEST PAIN Non-Formulary Medication 2 cap 09/16/24 08:00 Dextroamphetamine-Amphetamine PO 0800 TOBIN Non-Formulary Medication 1 tablet 09/16/24 14:00 Dextroamphetamine-Amphetamine PO 1400 TOBIN Ondansetron HCl 4 mg 09/15/24 17:22 Ondansetron 4 Mg/2 Ml Vial IV Q8H PRN PRN NAUSEA/VOMITING Oxycodone HCl 5 mg 09/15/24 17:22 Oxycodone 5 Mg Tablet PO Q4H PRN PRN Pain Score 4-10 Pantoprazole Sodium 20 mg 09/16/24 11:00 Pantoprazole Sodium 20 Mg Tablet PO DAILY TOBIN Sodium Chloride 10 - 40 ml 09/15/24 17:53 0.9% Saline Lock 10 Ml Syringe IV UD PRN SALINE FLUSH
[2024-09-16 11:00] VITALS: PULSE 55
[2024-09-16] MEDS: Enoxaparin 40 MG/0.4 ML Syringe SC (11:14)
[2024-09-16] MEDS: Pantoprazole Sodium 20 MG Tablet PO (11:14)
[2024-09-16] MEDS: buPROPion (XL) 300 MG TABLET.XL PO (11:14)
[2024-09-16] MEDS: clonazePAM 1 MG Tablet PO (11:14)
--- NOTE | 2024-09-16 11:55 | DCINST_ITS ---
Discharge Instructions Diet Discharge Diet: No restrictions DC O2, CPAP, BIPAP needs Home O2 Discharge instructions: No Dressing / Incision Discharge Activity: Return to Normal Activity Weight Bearing Status: Weight bearing as tolerated Dressing / Incision Call your doctor if you observe: Fever of 101 or Higher, Coldness, Increased Pain, Numbness or Tingling, Change in Color, Inability to urinate, Inability to have a bowel movement, Shortness of breath, Dizziness, Fainting spells, Swelling in the ankles, Chest pain, Prolonged hiccupping, Increased palpitations (irregular heartbeat) and Calf discomfort Follow Up Care When: IN 2 WEEKS Test Results: Test results from this visit will be discussed in further detail at your follow- up appointment, if applicable. Discharge Plan Admission Admit Date/Time: 09/15/24 16:48 Attending Provider: [place] Primary Care Provider: Марина Villanueva Consulting Providers: Natasha Gallo; Yared Darden; Brianna Baig; Kelly Lee; Gayle Wilson; Guera Lowe; David Triana; Alejandra Roque; Milton Castellanos; Dash Perkins; Nino Baez; Nilda Srivastava; Henry Coats; Annika Hankins; Lucina Stephens; Javier Haines; Reyes Walsh; Alexandra Cooper; Duc Soto; Ashley Juan; Lorna Glass Instructions Additional Instructions / Restrictions: Recommended outpatient EEG through PCP. Follow-up with a neurologist Discharge Orders/Prescriptions Prescriptions: New ibuprofen 400 mg Tablet 400 mg PO Q6H PRN PRN (Reason: Headache) Qty: 0 0RF Rx Instructions: OTC. As needed for migraine headache Continued clonazepam 0.5 MG tablet 0.5 mg PO DAILY PRN (Reason: Anxiety) bupropion HCl 300 MG tablet extended release 24 hr 300 mg PO DAILY multivitamin with minerals 1 EACH tablet 1 ea PO DAILY docusate sodium 100 MG capsule 100 mg PO BID PRN PRN (Reason: Constipation) Qty: 60 1RF clonazepam 1 mg tablet 1 mg PO BID dextroamphetamine-amphetamine 20 mg capsule,extended release 24hr 2 cap PO .morning dextroamphetamine-amphetamine 20 mg tablet 1 tab PO DAILY estradiol 0.075 mg/24 hr patch semiweekly 1 patch transdermal DAILY Referrals / Follow Up: Марина Villanueva DO [Primary Care Provider] - Nitin Wilks MD [Non-Staff -Ordering Privileges] - Within 1 Month (For possible migraine headache) Disposition Disposition (needs filled in before D/C Order can be placed): Home, Self Care
--- NOTE | 2024-09-16 11:59 | PCM.DC.SUM ---
Providers Date of Admission: 09/15/24 Date of Discharge: 09/16/24 Primary Care Physician: Dr. Марина Villanueva, DO Consultations 09/15/24 19:11 Consult: Tele-Neurology Routine Consulting Provider: [facility] Reason for Consult: headache, persistent weakness EMERGENT Consult: No MD Notified: Yes Date Notified: 09/16/24 Time Notified: 07:52 Method of Notification: Verbal Nursing Unit Staff Notify [facility] of Tele-Neurology Consult: Yes Reason For Visit: WEAKNESS Diagnosis Discharge Diagnosis (1) Debility: Status: Acute Code(s): R53.81 - Other malaise (2) Weakness: Status: Acute Code(s): R53.1 - Weakness Plan 49-year-old female was admitted with generalized weakness, insomnia, confusion after she woke up. She also had a severe headache mainly right hemicrania around right orbital region and face. She did not know her name or surrounding common acquaintances. She did an extensive workup in outside hospital ED with CT brain and CTA head and neck and CT chest which were all unremarkable. #Lethargy and weakness probably related to chronic depression, or medications and also headache: Her description of headache related to clinical suspicion of acute migraine headache with associated photophobia and worst in her life TSH is also normal. Urinalysis showed no evidence of UTI. No symptoms of lower urinary tract including burning micturition increased frequency urgency Headache got relieved with sumatriptan but she had feeling of warmth and cold sensation , usual side effect of triptans MRI brain with and without contrast appears within normal limit. CT head and neck reported unremarkable. Chest x-ray reported normal. Patient was evaluated by tele [facility] neurologist and impression was bad migraine with prolonged prodrome. No change in medication. Probably change in the dosing regimen of Adderall might have triggered an event. Recommended routine outpatient EEG. Lysf-paa-xiggdoo ibuprofen 4 mg every 6 hourly as needed for acute headache Follow-up outpatient neurologist with EEG to be ordered by PCP. #Sinus bradycardia: Patient has mild bradycardia with heart rate of 47 at time of review. TSH WNL Currently asymptomatic. No need for further workup. Heart rate is in 50s to 60s. No chest pain or shortness of breath. # ADHD, depression and anxiety: On bupropion and clonazepam. Dextroamphetamine/amphetamine DVT prophylaxis: SCDs. Medications at Discharge Home Medications bupropion HCl 300 mg 24 hr tablet, extended release 300 mg PO DAILY 02/05/19 clonazepam 0.5 mg tablet 0.5 mg PO DAILY PRN Anxiety 02/05/19 multivitamin with minerals 1 ea PO DAILY 07/21/19 docusate sodium 100 mg capsule 100 mg PO BID PRN PRN Constipation #60 caps 07/28/19 clonazepam 1 mg tablet 1 mg PO BID 09/15/24 dextroamphetamine-amphetamine 20 mg tablet 1 tab PO DAILY 09/15/24 dextroamphetamine-amphetamine ER 20 mg 24hr capsule,extend release 2 cap PO .morning 09/15/24 estradiol 0.075 mg/24 hr semiweekly transdermal patch 1 patch transdermal DAILY 09/15/24 ibuprofen 400 mg tablet 400 mg PO Q6H PRN PRN Headache #0 tabs 09/16/24 Physical Exam Narrative Seen and examined Patient had headache mainly right hemicrania, orbital region very severe. She usually gets headache about 2-3 times a month but this was the most severe headache of her life. Denies any diagnosis of chronic migraine headache or other chronic headache syndrome. History of depression and ADHD on multiple medications for ADHD including Adderall Denies dysuria Physical exam General: Alert, Oriented x3, Cooperative HEENT: Atraumatic, PERRLA, EOMI, Normocephalic Oral: No Gingival or Mucosal Lesions/ Ulcerations Neck: Supple, No JVD, Negative Carotid Bruits Chest wall/Lungs: Air entry equal in bilateral lung bases. No crepitation/rhonchi Cardiovascular: Regular rate, Regular Rhythm, Normal S1, Normal S2, No M/G/R Abdomen: Bowel Sounds Present, Soft, Non Tender, Non-Distended : No dysuria. No renal angle tenderness. No suprapubic tenderness. Extremities: No edema, Capillary Refill Less than 3 Seconds Skin: No rashes, No breakdown Musculoskeletal: No Tenderness to Palpation of Joints or Extremities Neurological: Cranial nerves II-XII grossly intact, DTR 2+/4. No acute focal neurological deficit. Psych/Mental Status: Flat affect. Weight / BMI Weight Weight: 131 lb 13.383 oz Body Mass Index (BMI) 22.6 ABG / Lab / Microbiology Data 09/16/24 06:39 09/16/24 06:39 Laboratory: Laboratory Results - last 24 hr 09/15/24 13:01: WBC 6.6, RBC 4.10 L, Hgb 12.5, Hct 37.5, MCV 91.5, MCH 30.5, MCHC 33.3, RDW Std Deviation 40.8, RDW Coeff of Matias 12.1, Plt Count 279, MPV 9.4, Immature Gran % (Auto) 0.200, Neut % (Auto) 60.4, Lymph % (Auto) 29.9, [place] % (Auto) 4.9, Eos % (Auto) 3.5, Baso % (Auto) 1.1 H, Absolute Neuts (auto) 4.0, Absolute Lymphs (auto) 1.96, Nucleated RBC % 0, Sodium 140, Potassium 3.7, Chloride 106, Carbon Dioxide 25.1, Anion Gap 9, BUN 15, Creatinine 0.72, Estim Creat Clear Calc 83.41, Est GFR (MDRD) Non-Af 104, BUN/Creatinine Ratio 20.5 H, Glucose 78, Lactic Acid < 1.0, Calcium 8.9, Total Bilirubin 0.38, AST 18, ALT 11, Alkaline Phosphatase 41, Troponin T High Sens < 6, Total Protein 6.3, Albumin 3.8, Globulin 2.5, Albumin/Globulin Ratio 1.6, TSH 1.490, Serum , Qual NEGATIVE, Ethyl Alcohol < 10.1 09/15/24 14:00: Urine Color Yellow, Urine Clarity Clear, Urine pH 6.0, Ur Specific [place] 1.010, Urine Protein Negative, Urine Glucose (UA) Normal, Urine Ketones Negative, Urine Occult Blood Negative, Urine Nitrite Negative, Urine Bilirubin Negative, Urine Urobilinogen Normal, Ur Leukocyte Esterase Negative, Urine RBC 0 SEEN, Urine WBC 0 SEEN, Ur Squamous Epith Cells 0-5 SEEN, Urine Bacteria 0 SEEN, Urine Mucus 0 SEEN, Urine Opiates Screen PRESUMPTIVE POSITIVE, U Buprenorphine Qual NEGATIVE, Ur Oxycodone Screen NEGATIVE, Urine Methadone Screen NEGATIVE, Urine Fentanyl Screen NEGATIVE, Ur Barbiturates Screen NEGATIVE, Ur Phencyclidine Scrn NEGATIVE, Ur Amphetamines Screen PRESUMPTIVE POSITIVE, U Benzodiazepines Scrn NEGATIVE, Urine Cocaine Screen NEGATIVE, U Cannabinoids Screen NEGATIVE 09/16/24 06:39: WBC 6.8, RBC 3.83 L, Hgb 11.7 L, Hct 35.6 L, MCV 93.0, MCH 30.5, MCHC 32.9, RDW Std Deviation 41.2, RDW Coeff of Matias 12.1, Plt Count 273, MPV 9.8, Immature Gran % (Auto) 0.400, Neut % (Auto) 54.6, Lymph % (Auto) 34.0, [place] % (Auto) 5.6, Eos % (Auto) 4.4, Baso % (Auto) 1.0, Absolute Neuts (auto) 3.7, Absolute Lymphs (auto) 2.31, Nucleated RBC % 0, Sodium 142, Potassium 3.8, Chloride 109 H, Carbon Dioxide 23.1, Anion Gap 9, BUN 12, Creatinine 0.67 L, Estim Creat Clear Calc 89.64, Est GFR (MDRD) Non-Af 108, BUN/Creatinine Ratio 17.6, Glucose 77, Calcium 8.6 Radiography Diagnostic Testing: Radiology Impression Head/Neck CTA 09/15/24 12:45 IMPRESSION: Unremarkable examination. Reading Location: [facility]--[facility] Chest X-Ray 09/15/24 13:45 IMPRESSION: NEGATIVE CHEST Reading Location: [facility]--1 Brain MRI 09/15/24 17:22 IMPRESSION: MRI of the brain without and with contrast appears within limits as above. Reading Location: [id number] Instructions Discharge Diet: No restrictions Weight Bearing Status: Weight bearing as tolerated Call your doctor if you observe: Fever of 101 or Higher, Coldness, Increased Pain, Numbness or Tingling, Change in Color, Inability to urinate, Inability to have a bowel movement, Shortness of breath, Dizziness, Fainting spells, Swelling in the ankles, Chest pain, Prolonged hiccupping, Increased palpitations (irregular heartbeat) and Calf discomfort DC O2, CPAP, BIPAP Needs Home O2 Discharge instructions: No When: IN 2 WEEKS Meaningful Use Info Meaningful Use Meaningful Use Diagnoses (Choose all that apply): None applicable Ischemic Stroke Statin Dosing Therapy Reference: STATIN DOSE THERAPY REFERENCE: * Patients > 75 years receive moderate or high dose statin therapy. * Patients 75 years or YOUNGER should receive HIGH intensity statin dose unless contraindicated. You will be required to document reason for non-treatment if statin daily dose does not meet guidelines. HIGH DOSE STATIN THERAPY DAILY Atorvastatin > than or = to 40 mg Rosuvastatin > than or = to 20 mg Amlodipine + Atorvastatin > than or = to 2.5/40 mg Ezetimibe + Simvastatin 10/80 mg Simvastatin 80mg Discharge Plan Admission Admit Date/Time: 09/15/24 16:48 Primary Reason for Your Visit: Generalized weakness, possible acute migraine headache Attending Provider: [place] Primary Care Provider: Марина Villanueva Consulting Providers: Natasha Gallo; Yarde Darden; Brianna Baig; Kelly Lee; Gayle Wilson; Guera Lowe; David Triana; Alejandra Roque; Milton Castellanos; Dash Perkins; Nino Baez; Nilda Srivastava; Henry Coats; Annika Hankins; Lucina Stephens; Javier Haines; Reyes Walsh; Alexandra Cooper; Duc Soto; Ashley Juan; Lorna Glass Instructions Additional Instructions / Restrictions: Recommended outpatient EEG through PCP. Follow-up with a neurologist Discharge Orders/Prescriptions Prescriptions: New ibuprofen 400 mg Tablet 400 mg PO Q6H PRN PRN (Reason: Headache) Qty: 0 0RF Rx Instructions: OTC. As needed for migraine headache Continued clonazepam 0.5 MG tablet 0.5 mg PO DAILY PRN (Reason: Anxiety) bupropion HCl 300 MG tablet extended release 24 hr 300 mg PO DAILY multivitamin with minerals 1 EACH tablet 1 ea PO DAILY docusate sodium 100 MG capsule 100 mg PO BID PRN PRN (Reason: Constipation) Qty: 60 1RF clonazepam 1 mg tablet 1 mg PO BID dextroamphetamine-amphetamine 20 mg capsule,extended release 24hr 2 cap PO .morning dextroamphetamine-amphetamine 20 mg tablet 1 tab PO DAILY estradiol 0.075 mg/24 hr patch semiweekly 1 patch transdermal DAILY Referrals / Follow Up: Марина Villanueva DO [Primary Care Provider] - Nitin Wilks MD [Non-Staff -Ordering Privileges] - Within 1 Month (For possible migraine headache) Disposition Disposition (needs filled in before D/C Order can be placed): Home, Self Care Charges/Coding Visit Charges Inpatient E&M: 69973 Disch Hosp >30min
--- NOTE | 2024-09-16 12:15 | CASEMGMT ---
Pt has an order for DC placed. KIERAN CM to pt room. Pt states that she lives @ home with her kids and that she is independent. See PT Jodi. Pt states that she has a ride home. Pt denies the need for any form of OP therapy. Pt states that she feels safe discharging home today and denies any further needs at this time.
--- NOTE | 2024-09-16 12:22 | CPS ---
EEG order came over at 1155. Called floor and spoke to LEFTY, pts nurse. I informed her that it was noted the pt was Discharged and the EEG was recommended for outpatient and to follow up with PCP and neurologist. LEFTY states she will txt Dr Bay to get order cancelled and have it scheduled as an outpatient. When speaking with LEFTY she also noted that it was recommended as outpatient EEG.
== END 2024-09-16 16:45 | disposition home or self-care (01) ==
LOC: ED 13:34 → MS3 17:14
PROVIDERS: Admitting Provider Student in an Organized Health Care Education/Training Program; Emergency Provider Surgery; PCP Family Medicine; Visit Provider Internal Medicine
DX: R53.1 Weakness (principal); I10 Essential (primary) hypertension; R11.0 Nausea; Z90.710 Acquired absence of both cervix and uterus; R51.9 Headache, unspecified; R53.81 Other malaise; F41.9 Anxiety disorder, unspecified; F90.9 Attention-deficit hyperactivity disorder, unspecified type; G47.00 Insomnia, unspecified; Z87.891 Personal history of nicotine dependence; K21.9 Gastro-esophageal reflux disease without esophagitis; F32.A Depression, unspecified; R00.1 Bradycardia, unspecified
CPT/HCPCS: 36415; 70496; 70498; 70553; 71046; 80048; 80053; 80307; 81001; 82077; 83605; 84443; 84484; 84703; 85025; 93005; 96361; 96372; 96374; 96375; 97162; 99221; 99285; A9575; Q9967; A4216; G0378; J2405; J3030